=== PATIENT | male | born 1985 | race Caucasian/White ===

== ENCOUNTER 2023-08-19 09:07 | Emergency (ER) | payer MEDICAID, SELFPAY ==
[2023-08-19] VITALS (13 sets, daily range): BP systolic 115–126; BP diastolic 58–94; PULSE 68–88; RESP 16–18; TEMP 36–36.3; O2SAT 92–100; BMI 22.7
--- NOTE | 2023-08-19 09:21 | CT_ITS ---
STUDY: CT ABDOMEN AND PELVIS WITHOUT CONTRAST REASON FOR EXAM: Male, 38 years old. RLQ pain since this morning. RADIATION DOSAGE (If Supplied By Facility): CTDIvol = ( 6.31 ) mGy, DLP = ( 324.98 ) mGycm TECHNIQUE: Transaxial images were obtained from the dome of the diaphragm to the symphysis pubis without oral contrast, and without intravenous contrast. Sagittal and coronal images were reconstructed. Individualized dose optimization techniques were used for this CT. COMPARISON: None. FINDINGS: The visualized lung bases are unremarkable. The visualized portions of the heart are within normal limits. Normal liver. There is a solitary gallstone. This measures 2 cm x 2 cm. There are multiple benign calcified granulomata of the spleen. Normal pancreas. Normal bilateral adrenal glands. There is a 2.9 cm x 2.4 cm parapelvic cyst in the lower midportion of the right kidney. 2 mm nonobstructive calculus in the posterior calyx of the mid lower pole of the right kidney. 2 mm calculus in the posterior calyx of the midportion of the left kidney. No evidence of hydronephrosis. Normal visualized stomach. Normal small intestine. Moderate amount of fecal material is seen in the rectum. The appendix is visualized and appears normal. Normal abdominal aorta. Normal inferior vena cava. Normal retroperitoneum. Normal urinary bladder. There is a small umbilical hernia containing fat. Normal osseous structures. CT/Abdomen/Pelvis without Cont IMPRESSION: Solitary gallstone measuring 2 cm x 2 cm. Nonobstructive tiny bilateral intrarenal calculi. Right renal cyst. Electronically Signed: Dami Luna MD at 10:00 EDT ,
--- NOTE | 2023-08-19 09:22 | EX.ED.DYSGE1 ---
HPI History of Present Illness Chief Complaint: Abd Pain Informant: patient Onset/Context/Timing Onset: Today Narrative Narrative: Patient presents with right lower quadrant abdominal pain. He states he woke from sleep at 445 this morning with severe pain to the right lower quadrant. He felt well when he went to bed last evening. He did try to eat some cereal but did vomit following this. He denies personal history of kidney stones but does have family history. Patient reports history of hypoglycemia. He states he currently has some tingling in the fingers of his left hand which he states usually starts about 5 hours before he has problems with low blood sugar. [facility] Medical History (Updated 08/19/23 @ 11:[address] Priscilla Beyer MD) Hypoglycemia Medical History no medical history Home Medications hydrocodone-acetaminophen 5-325mg 5mg-325mg 1 tab PO Q6H PRN PRN Pain 3 days #10 TABLETS 08/19/23 [Rx Last Taken Unknown] ondansetron 4 mg disintegrating tablet 4 mg PO Q8H PRN PRN Nausea #10 tabs 08/19/23 [Rx Last Taken Unknown] Allergy/AdvReac Type Severity Reaction Status Date / Time No Known Allergies Allergy Verified 08/19/23 09:11 Social History Smoking Status: Never smoker ROS ROS ED Constitutional Constitutional ED: Denies chills or fever(s) Eyes Eyes: Denies discharge from eye(s) ENT ENT ED: Denies discharge from eye(s), rhinorrhea or sore throat Cardiovascular Cardiovascular: Denies chest pain Respiratory/Chest Respiratory/Chest: Denies cough or dyspnea Gastrointestinal Gastrointestinal: Reports abdominal pain, nausea and vomiting; Denies diarrhea Genitourinary Genitourinary ED: Denies dysuria Musculoskeletal Musculoskeletal: Denies back pain or extremity pain Integumentary Denies Abrasions or rash Neurologic Neurologic: Denies headache(s) or weakness Psychiatric Psychiatric: Reports anxiety Allergic/Immunologic Allergic/Immunologic ED: Denies lip swelling or urticaria EXAM Physical Exam Const Vital Signs: 08/19/23 09:09 08/19/23 10:37 08/19/23 10:39 Temperature 96.8 F L Temperature Source Temporal Pulse Rate 68 Respiratory Rate 16 Blood Pressure 126/94 H 115/68 Blood Pressure Mean 104 80 Pulse Ox 100 100 Oxygen Delivery Method Room Air 08/19/23 10:40 08/19/23 10:45 08/19/23 10:50 Temperature Temperature Source Pulse Rate 88 Respiratory Rate 18 Blood Pressure 116/58 L 115/67 Blood Pressure Mean 74 83 Pulse Ox 100 100 Oxygen Delivery Method Positive well nourished and well developed General Appearance ED: well developed HEENT Reports moist mucous membranes Eyes EOMs intact bilaterally Chest Wall inspection of chest normal and palpation of chest normal Resp normal respiratory effort and clear to auscultation bilaterally Cardio regular rate and regular rhythm GI GI Narrative: Abdomen soft moderate tenderness in the right lower quadrant. No palpable masses. Extremity normal to inspection Neuro oriented x3 and no sensory deficits noted Psych Mood & Affect: anxious Skin no rashes or lesions noted MDM MDM MDM Narrative Medical decision making narrative: IV line established. Patient given morphine, Toradol, Zofran, and IV fluids. Labwork obtained to evaluate for leukocytosis, anemia, and electrolyte derangement. Urinalysis obtained to evaluate for infection/hematuria. CT flank obtained to evaluate for potential renal stone, appendicitis, colitis. History & Record Review Discussion w/independent historian: Patient and Family Lab Data Attestation: I reviewed the patient's lab results. Labs: Laboratory Results - last 24 hr 08/19/23 08/19/23 09:25 10:40 WBC 13.2 H RBC 4.89 Hgb 15.5 Hct 44.3 MCV 90.6 MCH 31.7 MCHC 35.0 RDW Std Deviation 38.7 RDW Coeff of Jef 11.7 Plt Count 240 MPV 10.6 Immature Gran % (Auto) 0.400 Neut % (Auto) 81.7 H Lymph % (Auto) 14.6 L [place] % (Auto) 2.7 Eos % (Auto) 0.2 Baso % (Auto) 0.4 Absolute Neuts (auto) 10.8 H Absolute Lymphs (auto) 1.93 Nucleated RBC % 0 Sodium 141 Potassium 3.8 Chloride 110 H Carbon Dioxide 24.0 Anion Gap 7 BUN 18 Creatinine 1.36 H Estim Creat Clear Calc 68.56 Est GFR (MDRD) Af Amer 75 Est GFR (MDRD) Non-Af 62 BUN/Creatinine Ratio 13.2 Glucose 123 H Calcium 9.4 Urine Color Yellow Urine Clarity Clear Urine pH 7.0 Ur Specific [place] 1.010 Urine Protein 15 H Urine Glucose (UA) Normal Urine Ketones 150 A* Urine Occult Blood Negative Urine Nitrite Negative Urine Bilirubin 1 H Urine Urobilinogen Normal Ur Leukocyte Esterase 25 H Urine RBC 0 SEEN Urine WBC 0-5 SEEN Ur Squamous Epith Cells 0 SEEN Urine Bacteria 1+ Urine Mucus 2+ Radiography Diagnostic Testing: Clinical Impression(s) from Imaging Studies Abdomen/Pelvis CT 08/19/23 09:21 IMPRESSION: Solitary gallstone measuring 2 cm x 2 cm. Nonobstructive tiny bilateral intrarenal calculi. Right renal cyst. Electronically Signed: Dami Luna MD at 10:00 EDT , Treatment and Re-Evaluation :: On repeat evaluation patient resting more comfortably. CBC was a white count of 13.2 with 81% neutrophils. Hemoglobin is 15.5. Chemistry studies reveal a creatinine of 1.36. Do not have any prior studies available for comparison. Glucose is 123. Urinalysis does reveal ketones with 0-5 white cells and 1+ bacteria. CT scan of flank reveals a solitary gallstone measuring 2 cm. No evidence of wall thickening or pericholecystic fluid. Nonobstructive tiny bilateral intrarenal calculi are noted. A right renal cyst is appreciated. Test results are discussed with patient and family at bedside. There is no evidence of ureterolithiasis at this time. Patient's pain is improved. We discussed that he may have passed a small stone, but at this time appendix and gallbladder both appear unremarkable. He will be given a short course of analgesics and referred to Dr. Wise for follow-up as needed. Return instructions given. Discharge Plan Triage Chief Complaint: Abd Pain ED Provider: Priscilla Beyer Dx/Rx/DC Orders Clinical Impression: Right flank pain, Bilateral renal stones, Cyst of right kidney Instructions: ED Flank Pain, Uncertain Cause Prescriptions: New ondansetron 4 mg tablet,disintegrating 4 mg PO Q8H PRN PRN (Reason: Nausea) Qty: 10 0RF hydrocodone-acetaminophen 5-325 mg tablet 1 tab PO Q6H PRN PRN (Reason: Pain) 3 Days Qty: 10 0RF Primary Care Provider: Care Physician,No Primary Referrals: Marcus Wise MD [Med Staff - Active Staff] - 1 Week if not improving Care Physician,No Primary [Primary Care Provider] - Activity Restrictions/Additional Instructions: You can also take Ibuprofen to help with pain. It will not interfere with the medications you were prescribed. Disposition Disposition: Home, Self Care
[2023-08-19] MEDS: Ondansetron 4 MG/2 ML Vial IV (09:27)
[2023-08-19] MEDS: Ketorolac 30 MG/ML Syringe IV (09:27)
[2023-08-19] MEDS: 0.9% Normal Saline (1000mL) 1,000 ML 150 ML IV (09:28)
[2023-08-19] MEDS: Morphine 4 MG/ML Syringe IV (09:28)
[2023-08-19 09:34] LABS: Absolute Lymphocyte Count 1.93 X10^3/uL (0.83-4.51); Absolute Neutrophil Count 10.8 X10^3/uL (2.0-7.7); Basophil# 0.05 X10^3/uL; Basophil% 0.4 % (0-1); Eosinophil# 0.03 X10^3/uL; Eosinophils% 0.2 % (0-5); Hematocrit 44.3 % (40-54); Hemoglobin 15.5 g/dL (13.0-16.5); Lymphocyte # 1.93 X10^3/ul (0.83-4.51); Lymphocyte % 14.6 % (19-41); Mean Corpuscular Hgb 31.7 pg (27.0-32.0); Mean Corpuscular Volume 90.6 fL (80-94); Mean Platelet Vol. 10.6 fl (6.2-12.0); Monocyte# 0.36 X10^3/uL; Monocyte% 2.7 % (0-10); NRBC Flagged by Analyzer 0 % (0-5); Neutrophil # 10.77 X10^3/uL (2.7-7.7); Neutrophil % 81.7 % (47-70); Platelet Count 240 K/mm3 (150-450); RBC Distribution Width CV 11.7 % (11.6-14.6); RBC Distribution Width SD 38.7 fl (35.1-43.9); Red Blood Count 4.89 M/mm3 (4.6-6.2); White Blood Count 13.2 K/mm3 (4.4-11.0)
[2023-08-19 09:49] LABS: Anion Gap 7 (5-15); BUN 18 mg/dL (7-18); BUN/Creat Ratio 13.2 RATIO (10-20); Calcium,Total 9.4 mg/dL (8.5-10.1); Chloride 110 mmol/L (98-107); Creatinine, Serum 1.36 mg/dL (0.70-1.30); EST Glomerular Filtration Rate 62 mL/min (>60); Est Glom Filt Rate - Afr Amer 75 mL/min (>60); Estimated Creatinine Clearance 68.56 ml/min; Glucose 123 mg/dL (74-106); Potassium 3.8 mmol/L (3.5-5.1); Sodium Level 141 mmol/L (136-145)
[2023-08-19 10:44] LABS: Squamous Epithelial Cells - UA 0 SEEN /hpf (0-5)
[2023-08-19 10:49] LABS: Color, Urine Yellow (Yellow); Glucose, Dipstick Normal (Normal); Leukocyte Esterase-Dipstick 25 /ul (Negative); Nitrite-Dipstick Negative (Negative); Occult Blood-Urine Negative /ul (Negative); Protein-Dipstick 15 mg/dl (Negative); Urine Clarity Clear (Clear); Urine Urobilinogen Normal (Normal)
[2023-08-19 10:58] LABS: Urine Bilirubin Dipstick 1 mg/dL (Negative)
[2023-08-19 11:00] LABS: Ketone-Dipstick 150 mg/dl (Negative)
[2023-08-19 11:02] LABS: Bacteria 1+ /hpf (None Seen); Mucous, Urine 2+ /hpf (<or=2+); Red Blood Cells-Urine 0 SEEN /hpf (0-5); White Blood Cells 0-5 SEEN /hpf (0-5)
== END 2023-08-19 11:51 | disposition home or self-care (01) ==
PROVIDERS: Emergency Provider Emergency Medicine; Visit Provider Emergency Medicine
DX: R10.31 Right lower quadrant pain (principal); N28.1 Cyst of kidney, acquired
CPT/HCPCS: 74176; 80048; 81001; 85025; 96374; 96375; 99283; J7030; A4216; J2405

== ENCOUNTER 2024-07-18 08:00 | Emergency (ER) | payer BC, SELFPAY ==
[2024-07-18 08:00] VITALS: BP 157/120; PULSE 55; RESP 14; TEMP 36.6; O2SAT 100; BMI 24.5
[2024-07-18] MEDS: Morphine 4 MG/ML Syringe IV (08:21)
[2024-07-18] MEDS: Ketorolac 30 MG/ML Syringe IV (08:21)
[2024-07-18] MEDS: Ondansetron 4 MG/2 ML Vial IV (08:21)
[2024-07-18] MEDS: 0.9% Normal Saline (1000mL) 1,000 ML 1000 ML IV (08:21)
[2024-07-18 08:31] LABS: Bedside Glucose 127 mg/dL (74-106)
[2024-07-18 08:34] LABS: Absolute Lymphocyte Count 1.54 X10^3/uL (0.83-4.51); Absolute Neutrophil Count 6.8 X10^3/uL (2.0-7.7); Basophil# 0.05 X10^3/uL; Basophil% 0.6 % (0-1); Eosinophil# 0.06 X10^3/uL; Eosinophils% 0.7 % (0-5); Hemoglobin 15.4 g/dL (13.0-16.5); Lymphocyte # 1.54 X10^3/ul (0.83-4.51); Lymphocyte % 17.4 % (19-41); Mean Corp Hgb Conc 35.8 g/dL (32-36); Mean Corpuscular Hgb 32.4 pg (27.0-32.0); Mean Corpuscular Volume 90.5 fL (80-94); Mean Platelet Vol. 10.6 fl (6.2-12.0); Monocyte# 0.34 X10^3/uL; Monocyte% 3.8 % (0-10); NRBC Flagged by Analyzer 0 % (0-5); Neutrophil # 6.83 X10^3/uL (2.7-7.7); Neutrophil % 77.3 % (47-70); Platelet Count 231 K/mm3 (150-450); RBC Distribution Width CV 11.9 % (11.6-14.6); RBC Distribution Width SD 39.3 fl (35.1-43.9); Red Blood Count 4.75 M/mm3 (4.6-6.2); White Blood Count 8.8 K/mm3 (4.4-11.0)
--- NOTE | 2024-07-18 08:41 | EX.ED.DYSGE1 ---
HPI History of Present Illness Chief Complaint: Flank Pain Informant: patient and parent Narrative Narrative: 39-year-old male presenting to the emergency room with a chief complaint of of abdominal pain. Patient states that at 0300 hrs. began experiencing back pain nausea vomiting right posterior shoulder pain and upper abdominal pain. Patient had prior kidney stone. He notes that he has had a couple bowel movements this morning and relieving some gas seem to help but symptoms persist. On prior CT imaging the patient was noted to have a large gallstone. He notes that he last ate around 1800 hrs. last night the pain began around 9 hours later. No reported fevers. [facility] Medical History Hypoglycemia Medical History no medical history Home Medications ?Medication ?Instructions ?Recorded ?Last Taken ?Type omeprazole 20 mg capsule,delayed 20 mg PO BID #28 CAPSULES 07/18/24 Unknown Rx release ondansetron 4 mg disintegrating 4 mg PO Q6H PRN PRN Nausea #15 tabs 07/18/24 Unknown Rx tablet oxycodone-acetaminophen 5 mg-325 1 tab PO Q6H PRN PRN Pain 3 days 07/18/24 Unknown Rx mg tablet #12 TABLETS Allergy/AdvReac Type Severity Reaction Status Date / Time No Known Allergies Allergy Verified 07/18/24 08:01 Surgical History no surgical history Social History Smoking Status: Never smoker ROS ROS ED Constitutional Constitutional ED: Denies chills, fever(s) or weight loss Eyes Eyes: Denies change in vision or diplopia ENT ENT ED: Denies ear pain, rhinorrhea or sore throat Cardiovascular Cardiovascular: Denies chest pain, orthopnea, palpitations or racing heartbeat Respiratory/Chest Respiratory/Chest: Denies cough, dyspnea or orthopnea Gastrointestinal Gastrointestinal: Reports abdominal pain, nausea and vomiting; Denies diarrhea Genitourinary Genitourinary ED: Denies dysuria, hematuria or urinary frequency Musculoskeletal Musculoskeletal: Reports back pain; Denies arthralgias or myalgias Integumentary Denies abscess or rash Neurologic Neurologic: Denies headache(s) or weakness Psychiatric Psychiatric: Denies anxiety, depression, suicidal ideation or suicidal thoughts Endocrine Endocrinology: Denies polydipsia, polyphagia or polyuria Allergic/Immunologic Allergic/Immunologic ED: Denies mouth swelling, tongue swelling or urticaria EXAM Physical Exam Const Vital Signs: 07/18/24 08:00 07/18/24 10:00 07/18/24 12:00 Temperature 98 F Temperature Source Temporal Pulse Rate 55 L 81 79 Respiratory Rate 14 16 16 Blood Pressure 157/120 H 107/67 110/68 Blood Pressure Mean 132 80 82 Pulse Ox 100 99 99 Oxygen Delivery Method Room Air Room Air Room Air 07/18/24 14:00 Temperature Temperature Source Pulse Rate 76 Respiratory Rate 16 Blood Pressure 115/78 Blood Pressure Mean 90 Pulse Ox 99 Oxygen Delivery Method Positive well nourished and well developed General Appearance ED: well developed and NAD HEENT Reports normocephalic, head/scalp atraumatic and moist mucous membranes Eyes PERRL and EOMs intact bilaterally Neck no lymphadenopathy, supple and no JVD Resp normal respiratory effort and clear to auscultation bilaterally Cardio regular rate, regular rhythm and no murmurs GI Inspection: Negative for abdominal distention Auscultation: normoactive bowel sounds Palpation: soft, tender RUQ and guarding; Negative for rebound tenderness present Back/Spine no CVA tenderness and normal ROM Extremity normal to inspection General Extremety ED: Negative for edema General Extremity: Negative for edema Neuro oriented x3 and CN's II-XII intact bilaterally Sensorium / Orientation: alert Motor Exam: strength 5/5 throughout Psych mental status grossly normal Mood & Affect: Negative for depressed or tearful Skin no rashes or lesions noted and no wounds MDM MDM MDM Narrative Medical decision making narrative: Differential diagnosis includes but not limited to biliary colic pancreatitis choledocholithiasis kidney stone UTI Patient was concerned with hypoglycemia and is Accu-Chek was 127. Patient's white count is 8.8 with a hemoglobin of 15.4 platelet count of 231. BMP shows a glucose of 131. Direct bilirubin is 0.43 with a total bilirubin of 2.4 transaminases and alkaline phosphatase normal lipase 24. Urinalysis with no overt infection. CT of the abdomen pelvis was obtained. This was read by radiology reviewed by myself. There is evidence of nonobstructing kidney stones but no obvious hydronephrosis or kidney stone in the ureter. There is evidence of cholelithiasis with some a rate of mild pericholecystic fluid. Formal gallbladder ultrasound was obtained. This demonstrated cholelithiasis small amount of pericholecystic fluid no gallbladder wall thickening. Please see radiologist read for full details. Discussed the case with on-call surgeon Dr. Ivey. She reviewed imaging and blood work. Recommendation is to give the patient a dose of Pepcid. We did an given p.o. challenge and he has kept the water down. We reviewed the above findings. Using shared decision making the patient will be discharged home with instructions to follow-up with general surgery. I will write for omeprazole against her on and some pain medication should he need it. If he worsens he should return to emergency. Otherwise we will have him follow-up with surgery History & Record Review Discussion w/independent historian: Patient and Family Lab Data Attestation: I reviewed the patient's lab results. Labs: Laboratory Results - last 24 hr 07/18/24 07/18/24 07/18/24 08:12 08:25 11:20 WBC 8.8 RBC 4.75 Hgb 15.4 Hct 43.0 MCV 90.5 MCH 32.4 H MCHC 35.8 RDW Std Deviation 39.3 RDW Coeff of Jef 11.9 Plt Count 231 MPV 10.6 Immature Gran % (Auto) 0.200 Neut % (Auto) 77.3 H Lymph % (Auto) 17.4 L [place] % (Auto) 3.8 Eos % (Auto) 0.7 Baso % (Auto) 0.6 Absolute Neuts (auto) 6.8 Absolute Lymphs (auto) 1.54 Nucleated RBC % 0 Sodium 141 Potassium 3.5 Chloride 107 Carbon Dioxide 24.0 Anion Gap 10 BUN 16 Creatinine 1.27 Estim Creat Clear Calc 73.01 Est GFR (MDRD) Af Amer 81 Est GFR (MDRD) Non-Af 67 BUN/Creatinine Ratio 12.6 Glucose 131 H Calcium 9.3 Total Bilirubin 2.40 H Direct Bilirubin 0.43 H AST 16 ALT 26 Alkaline Phosphatase 91 Total Protein 7.3 Albumin 4.3 Globulin 3.0 Lipase 24 L Urine Color Yellow Urine Clarity Clear Urine pH 7.0 Ur Specific [place] 1.005 Urine Protein 30 H Urine Glucose (UA) Normal Urine Ketones 5 H Urine Occult Blood 10 H Urine Nitrite Negative Urine Bilirubin Negative Urine Urobilinogen 4 H Ur Leukocyte Esterase 25 H Urine RBC 0 SEEN Urine WBC 0 SEEN Ur Squamous Epith Cells 0 SEEN Urine Bacteria 0 SEEN Urine Mucus 0 SEEN POC Glucose 127 H Radiography Diagnostic Testing: Clinical Impression(s) from Imaging Studies Abdomen/Pelvis CT 07/18/24 09:54 IMPRESSION: 1. Unchanged cholelithiasis with mild pericholecystic fluid and intrahepatic biliary ductal dilation. Findings are equivocal and may represent acute cholecystitis in the correct clinical setting. Correlation with Penny's sign, laboratory values and clinical history recommended. 2. Punctate nonobstructing right lower pole renal calculus. One or more dose reduction techniques were used (e.g., Automated exposure control, adjustment of the mA and/or kV according to patient size, use of iterative reconstruction technique). Reading Location: [facility] Gallbladder Ultrasound 07/18/24 10:44 IMPRESSION: Ultrasound findings compatible with acute cholecystitis. Clinical and laboratory correlation recommended. Reading Location: [facility] Management Discussion w/another healthcare provider: Support Group Manager (Dr Ivey (Surgery)) Discharge Plan Triage Chief Complaint: Flank Pain ED Provider: Nav Rivera Dx/Rx/DC Orders Clinical Impression: Abdominal pain, Vomiting, Cholelithiasis Instructions: What Are Gallstones, Treating Gallstones Prescriptions: New oxycodone-acetaminophen 5-325 mg tablet 1 tab PO Q6H PRN PRN (Reason: Pain) 3 Days Qty: 12 0RF omeprazole 20 mg capsule,delayed release(DR/EC) 20 mg PO BID Qty: 28 0RF ondansetron 4 mg tablet,disintegrating 4 mg PO Q6H PRN PRN (Reason: Nausea) Qty: 15 0RF Primary Care Provider: Care Physician,No Primary Referrals: Lary Ivey MD [Med Staff - Active Staff] - As soon as possible Care Physician,No Primary [Primary Care Provider] - Print Language: Citizen Of [place] Disposition Disposition: Home, Self Care
[2024-07-18 09:02] LABS: AST(SGOT) 16 U/L (15-37); Alanine Aminotransfer ALT/SGPT 26 U/L (16-61); Albumin, Serum 4.3 g/dL (3.2-5.0); Alkaline Phosphatase 91 U/L (45-117); Anion Gap 10 (5-15); BUN 16 mg/dL (7-18); BUN/Creat Ratio 12.6 RATIO (10-20); Bilirubin, Direct 0.43 mg/dL (0.00-0.30); Calcium,Total 9.3 mg/dL (8.5-10.1); Chloride 107 mmol/L (98-107); Creatinine, Serum 1.27 mg/dL (0.70-1.30); EST Glomerular Filtration Rate 67 mL/min (>60); Est Glom Filt Rate - Afr Amer 81 mL/min (>60); Estimated Creatinine Clearance 73.01 ml/min; Glucose 131 mg/dL (74-106); Lipase 24 U/L (73-393); Potassium 3.5 mmol/L (3.5-5.1); Protein, Total 7.3 g/dL (6.4-8.2); Sodium Level 141 mmol/L (136-145)
--- NOTE | 2024-07-18 09:54 | CT_ITS ---
PROCEDURE: ABDOMEN/PELVIS W IV CONT ONLY REASON FOR EXAM: 39-year-old male, right-sided flank pain, nausea and vomiting, history of kidney stones. TECHNIQUE: Abdomen and pelvis CT with intravenous contrast. No oral contrast. IV CONTRAST: Administered. COMPARISON: CT abdomen pelvis 08/19/2023. FINDINGS: Lung bases: The heart is normal in size. Bibasilar atelectasis. Liver: The liver is normal in size without focal hepatic mass. The major portal veins are patent. Mild biliary ductal dilation. Gallbladder: Stable dependent cholelithiasis. Mild pericholecystic fluid. No gallbladder wall thickening. Spleen: Unremarkable. Pancreas: Unremarkable. No pancreatic ductal dilation. Adrenals: Unremarkable. Kidneys: Bilateral renal cysts. Punctate nonobstructing right lower pole renal calculus. No hydronephrosis. Bladder: Mildly distended and unremarkable. Reproductive Organs: Unremarkable. Bowel: The bowel loops are normal in caliber. No ascites or pneumoperitoneum. No inflammatory mass in the expected region of the appendix. Lymph nodes: No suspicious lymph node enlargement. Vasculature: Major vascular structures are unremarkable. Bones: Unremarkable. CT/Abdomen/Pelvis W IV Cont ONLY IMPRESSION: 1. Unchanged cholelithiasis with mild pericholecystic fluid and intrahepatic bi liary ductal dilation. Findings are equivocal and may represent acute cholecystitis in the correct clinical setting. Correlation with Penny's sign, laboratory values and clinical history recommended. 2. Punctate nonobstructing right lower pole renal calculus. One or more dose reduction techniques were used (e.g., Automated exposure contr ol, adjustment of the mA and/or kV according to patient size, use of iterative reconstruction technique). Reading Location: [id number]
[2024-07-18 10:00] VITALS: BP 107/67; PULSE 81; RESP 16; O2SAT 99
--- NOTE | 2024-07-18 10:44 | US_ITS ---
PROCEDURE: GALLBLADDER REASON FOR EXAM: 39-year-old male, abdominal pain, evaluate for gallbladder stone. COMPARISON: Same day CT abdomen pelvis. FINDINGS: Liver: Grossly normal size and echotexture. Gallbladder: There are echogenic gallstones and minimal pericholecystic fluid. The gallbladder is mildly distended. No gallbladder wall thickening. A sonographic Penny sign is present. Common bile duct: Normal measuring 0.4 cm Pancreas: Visualized portions are sonographically unremarkable. Visualized portions of the right kidney are unremarkable. Small right renal cyst. No right upper quadrant ascites. US/Gallbladder IMPRESSION: Ultrasound findings compatible with acute cholecystitis. Clinical and laborato ry correlation recommended. Reading Location: [id number]
[2024-07-18 11:28] LABS: Bacteria 0 SEEN /hpf (None Seen); Mucous, Urine 0 SEEN /hpf (<or=2+); Squamous Epithelial Cells - UA 0 SEEN /hpf (0-5); White Blood Cells 0 SEEN /hpf (0-5)
[2024-07-18 11:31] LABS: Color, Urine Yellow (Yellow); Glucose, Dipstick Normal (Normal); Ketone-Dipstick 5 mg/dl (Negative); Leukocyte Esterase-Dipstick 25 /ul (Negative); Nitrite-Dipstick Negative (Negative); Occult Blood-Urine 10 /ul (Negative); Protein-Dipstick 30 mg/dl (Negative); Specific Gravity, Urine 1.005 (1.002-1.030); Urine Bilirubin Dipstick Negative (Negative); Urine Clarity Clear (Clear); Urine Urobilinogen 4 mg/dl (Normal)
[2024-07-18 11:36] LABS: Red Blood Cells-Urine 0 SEEN /hpf (0-5)
[2024-07-18 12:00] VITALS: BP 110/68; PULSE 79; RESP 16; O2SAT 99
[2024-07-18] MEDS: Famotidine 20 MG Tablet 40 MG PO (13:24)
[2024-07-18 14:00] VITALS: BP 115/78; PULSE 76; RESP 16; O2SAT 99
== END 2024-07-18 15:12 | disposition home or self-care (01) ==
PROVIDERS: Emergency Provider Emergency Medicine; Visit Provider Emergency Medicine
DX: K80.20 Calculus of gallbladder without cholecystitis without obstruction (principal); Z87.442 Personal history of urinary calculi; R11.2 Nausea with vomiting, unspecified
CPT/HCPCS: 74177; 76705; 80048; 80076; 81001; 82962; 83690; 85025; 96361; 96374; 96375; 99284; A4216; J2405

== ENCOUNTER 2024-07-29 06:16 | Day surgery (SDC) | payer BC, SELFPAY ==
--- NOTE | 2024-07-29 | GASB_PTH ---
PATIENT: ROMANA RICARDO LOC: EN U#:[id number] AGE/SX: 39/M ROOM: RE07/29/[address]: Dr. Lary Ivey MD : 1985 BED: DIS: 07/29/2024 SPEC #: [id number] RECD: 07/29/24 12:23 STATUS: BIANKA VALENTIN #: [id number] JIL: 07/29/24 00:[address]: Lary Ivey DEPT: SURGICAL PATHOLOGY RECD BY: Jak Villa ENTERED: 07/29/24 12:23 SP TYPE: Gastric Bx OTHR DR: No Primary Care Phys Tissues: Gastric mucous membrane Procedures: Surgery Specimen Level IV HEADER OPERATION: EGD and biopsy PRE-OP DIAGNOSIS: Cholelithiasis and GERD TISSUE SUBMITTED: Antral biopsy MICROSCOPIC DIAGNOSIS Antral biopsy: Mild gastritis. See microscopic description and comment. 07/30/2024 COMMENT The results of immunohistochemistry for Helicobacter pylori will be reported separately ([id number]). MICROSCOPIC DESCRIPTION Slides are reviewed. The specimen shows fragments of gastric mucosa with chronic inflammatory cell infiltrates in the lamina propria consisting of lymphocytes and plasma cells, consistent with mild chronic gastritis. GROSS DESCRIPTION Received in fixative is one container labeled with the patient's name and designated Antral biopsy. The specimen consists of two irregular fragments of light fonseca soft tissue that in aggregate measure 0.5 x 0.3 x 0.2 cm. The specimen is totally submitted in one cassette. 07/29/2024 TC:2 CPT:06345
[2024-07-29 06:34] VITALS: BP 120/69; PULSE 73; RESP 16; TEMP 36.4; O2SAT 100; BMI 23.4
--- NOTE | 2024-07-29 07:20 | PCM.HP.BLA ---
History and Physical Date of Admission: 07/29/24 Date of Service: 07/23/24 MR#: [id number] Acct: [id number] Name: ROMANA RICARDO Rep #: [id number] : 1985 Provider: Dr. 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 Is patient in pain?: Yes (sore throat) Allergies No Known Allergies Allergy (Verified 07/23/24 08:54) Medications ?Medication ?Instructions ?Recorded ?Confirmed ?Type omeprazole 20 mg capsule,delayed 20 mg PO BID #28 CAPSULES 07/18/24 07/23/24 Rx release ondansetron 4 mg disintegrating 4 mg PO Q6H PRN PRN Nausea #15 tabs 07/18/24 07/23/24 Rx tablet oxycodone-acetaminophen 5 mg-325 1 tab PO Q6H PRN PRN Pain 3 days 07/18/24 07/23/24 Rx mg tablet #12 TABLETS Have you fallen in the past year?: No PFSH Medical History Hypoglycemia Social History Smoking Status: Never smoker alcohol intake: never HPI HPI HPI: 39-year-old male presents status post follow-up from the ER for epigastric/right upper quadrant pain, cholelithiasis. Patient states that he ate at noon and 5 PM and the pain woke him up at 3 AM. Patient states his epigastric/right upper quadrant wrapped around. Patient denies history of previous similar pain. Patient was previously able to eat fatty greasy foods without any issues prior to this. Patient has been following a low-fat diet currently. Patient is also currently on omeprazole as his labs were normal in the ER and pain did improve after getting IV Protonix. Patient CT abdomen pelvis done a year prior as well as at the ER looks similar called stable mild pericholecystic fluid, cholelithiasis was at the fundus of the gallbladder. Ultrasound also done showed a normal wall normal CBD called mild pericholecystic fluid as well as gallstones. ROS General General: No weight change, appetite, fatigue, colon cancer or breast cancer HEENT HEENT: No difficulty swallowing, eye injury, eye surgery, swollen glands or hoarseness Endo Endocrine: No thyroid disease, diabetes mellitus, thyroid cancer, Hair loss, heat intolerance or cold intolerance Skin Skin: No rash or changing moles Musc Musculoskeletal: No back problems, arthritis, rheumatoid arthritis, gout or joint pain Cardio Cardiovascular: No murmur, pacemaker, heart disease, atrial fibrillation, high blood pressure, heart attack, heart stent, palpitations, shortness of breat with exertion or chest pain Psych Psychiatric: Yes depression and anxiety; No hearing voices Resp Respiratory: No shortness of breath, No sleep apnea, No cough, No COPD, No asthma, No emphysema and No wheezing Gastro Gastrointestinal: No abdominal pain, No nausea or vomiting, No diarrhea, No constipation, No blood in stool, No acid reflux, No hemorrhoids, No ulcers, No gallbladder problem and No black,tarry stools Ki Hematologic: No blood thinners, No blood disorders, No bleeding, No anemia and No blood clots Neuro Neurologic: No numbness and No tingling Exam Const General: cooperative, healthy appearing, comfortable and no acute distress [facility] Head: normocephalic and atraumatic Neck Neck: supple Resp Effort & Inspection: normal respiratory effort Cardio Rate: regular rate GI Inspection: non-distended Palpation: soft and tender (Mild right upper quadrant and epigastric and minimal RLQ, no PS) Skin General: no rashes or lesions noted Neuro General: CN's II-XI intact bilaterally Extrem General: normal to inspection Psych Mental Status: mental status grossly normal Attitude: cooperative Assessment and Plan Assessment and Plan (1) Abdominal pain: Status: Acute (2) Cholelithiasis: Status: Acute Orders: Orders EGD 07/29/24 Plan Patient denies any pain since the ER patient did have some pain on exam did state that he did not take his omeprazole yet this morning. Patient previous more consistent with gastric etiology than cholelithiasis as gallbladder was similar to last year on CT in gallstones are in the fundus. Discussed with patient would continue the omeprazole plan for an EGD?if the EGD does not show anything obvious would schedule for laparoscopic cholecystectomy at that time. Patient is agreeable with plan. I have discussed the above with the patient. I have offered the patient esophagogastroduodenoscopy for evaluation. I have explained the risks/benefits of the procedure and described the procedure. I have discussed the risks with the patient, including but not limited to: infection, bleeding, perforation of the GI tract requiring emergency surgery, inability to complete the procedure, injury to any internal organs, complications of anesthesia, etc. - the patient understands and agrees to proceed. I have answered all the patient's questions to the patient's satisfaction and the patient has no further questions. Lary Ivey M.D. Pager: [phone] [facility] [address] [place] [address] [address] [place] [address] Office: [phone] Coding Level of Care Code Off vis,new,level 3 Diagnoses Abdominal pain R10.9 Cholelithiasis K80.20 Clinical Quality Measures Falls Risk Screening/Assistive Devices Have you fallen in the past year?: No 07/24/24 0931 <Electronically signed by Lary Ivey MD> Date Lary Ivey MD
[2024-07-29 07:21] VITALS: BP 120/69; PULSE 73; RESP 16; TEMP 36.4; O2SAT 100
--- NOTE | 2024-07-29 07:21 | PCM.PRE.AN2 ---
ASA Classification* ASA Classification ASA Classification: 2 Assessment & Plan Anesthesia* Anesthesia Assessment Anesthesia Assessment: Discussed sedation and/or anesthesia options, risks, benefits, and alternatives with patient/parents/legal guardian/POA. Questions invited. The patient/parents/legal guardian/POA seems to understand and agrees to proceed with anesthesia plan. Reviewed the physical assessment, medical history, allergy history and patient home medications list prior to surgery/procedure/anesthetic and documented any changes. Performed airway and anesthesia risk assessments. Anesthesia Type Anesthesia Type: MAC History Source History Obtained from:: Patient and Chart Anesthesia Focused Assessment* Temperature: 97.5 F Pulse Rate: 73 Blood Pressure: 120/69 Respiratory Rate: 16 Pulse Ox: 100 Airway Assessment Mouth opens: >3 cm Mallampati Score: II Teeth Condition: Intact Neck Range of motion (ROM): Full ROM Focused Labs Anesthesia Preop lab: CBC WBC 8.8 K/mm3 (4.4-11.0) 07/18/24 08:07/18/24 RBC 4.75 M/mm3 (4.6-6.2) 07/18/24 08:07/18/24 Hgb 15.4 g/dL (13.0-16.5) 07/18/24 08:07/18/24 Hct 43.0 % (40-54) 07/18/24 08:07/18/24 Plt Count 231 K/mm3 (150-450) 07/18/24 08:25 07/18/24 CHEMISTRY Potassium 3.5 mmol/L (3.5-5.1) 07/18/24 08:25 07/18/24 Sodium 141 mmol/L (136-145) 07/18/24 08:25 07/18/24 BUN 16 mg/dL (7-18) 07/18/24 08:25 07/18/24 Creatinine 1.27 mg/dL (0.70-1.30) 07/18/24 08:07/18/24 Glucose 131 mg/dL (74-106) H 07/18/24 08:25 07/18/24 POC Glucose 127 mg/dL (74-106) H 07/18/24 08:12 07/18/24 COAG Pre-Assessment Diagnosis/Proposed Procedure Planned Operative Procedure(s): EGD Anesthesia History 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 When Was Last Pacemaker Check QUESTION #4 FULL TEXT: You/Your Family Experience fever (hyperthermia) with Anesthesia Last Oral Intake Last Oral intake: Last Oral Intake NPO since 23:00 07/29/24 06:34 Meds taken in AM with sips of No 07/29/24 06:34 water? 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 fastener chain assembler Female No 07/27/24 13:25 HX of Motion Sickness Yes 07/27/24 13:25 HX of N/V After Surgery No 07/27/24 13:25 Non-Smoker Yes 07/27/24 13:25 Duration of Surgery greater No 07/27/24 13:25 than 60 minutes Number of Risk Factors 2 07/27/24 13:25 PONV Score Moderate Risk 07/27/24 13:25 Height & Weight Height & Weight: Anesthesia: Height & Weight Height 5 ft 7 in 07/29/24 06:34 Weight: 68 kg 07/29/24 06:34 Body Mass Index (BMI) 23.4 07/29/24 06:34 Respiratory Assessment Respiratory Assessment - slide fastener chain assembler: Respiratory Tract Infection Hx - slide fastener chain assembler Hx Respiratory Tract Infection No 07/27/24 13:25 STOP Sleep Apnea STOP Sleep Apnea - slide fastener chain assembler: STOP Sleep Apnea - slide fastener chain assembler Hx Hypertension No 07/27/24 13:25 Hx Sleep Apnea No 07/27/24 13:25 CPAP BIPAP Do you snore loudly (louder No 07/27/24 13:25 than talking or can be heard Do you often feel tired/ No 07/27/24 13:25 fatigued/ sleepy during daytime? Has anyone observed you stop No 07/27/24 13:25 breathing during sleep? STOP Results Negative 07/27/24 13:25 QUESTION #5 FULL TEXT : Do you snore loudly (louder than talking or can be heard through closed doors)? 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 Specify any problems Hx of Preganancy in last 3 N/A 07/27/24 13:25 Months Nurse Filling Out Transfusion [email or web address] 07/27/24 13:25 & Questions: Date: 07/27/24 07/27/24 13:25 Time: 13:27 07/27/24 13:25 Patient unable to answer at this time (ie. confused, unrespo /Reproduction History /Reproductive History - slide fastener chain assembler: /Reproductive Hx- slide fastener chain assembler Hx Now Gestational Age (in weeks): EDC: Hx Hx Para Hx Section SAB No 08/19/23 09:09 PFSH Medical History Depression Anxiety Gastric reflux Hypoglycemia Home Medications ?Medication ?Instructions ?Recorded ?Last Taken ?Type omeprazole 20 mg capsule,delayed 20 mg PO BID #28 CAPSULES 07/18/24 Unknown Rx release ondansetron 4 mg disintegrating 4 mg PO Q6H PRN PRN Nausea #15 tabs 07/18/24 Unknown Rx tablet oxycodone-acetaminophen 5 mg-325 1 tab PO Q6H PRN PRN Pain 3 days 07/18/24 Unknown Rx mg tablet #12 TABLETS Allergy/AdvReac Type Severity Reaction Status Date / Time No Known Allergies Allergy Verified 07/29/24 06:33 Social History Smoking Status: Never smoker alcohol intake: never Review of Systems (Anesthesia) ROS Narrative System reviewed and no additional complaints, except as documented.
--- NOTE | 2024-07-29 07:30 | IMM_PTH ---
PATIENT: ROMANA RICARDO LOC: [facility] U#:[id number] AGE/SX: 39/M ROOM: RE07/29/[address]: Dr. Lary Ivey MD : 1985 BED: DIS: 07/29/2024 SPEC #: [id number] RECD: 07/29/24 13:01 STATUS: BIANKA VALENTIN #: [id number] JIL: 07/29/24 07:[address]: Lary Ivey DEPT: IMMUNOHISTOCHEMISTRY RECD BY: Abrahan Moncada ENTERED: 07/29/24 13:01 SP TYPE: IMMUNO OTHR DR: Kenzie Primary Care Phys Tissues: Gastric mucous membrane Procedures: H Pylori (initial) PHYSICIAN & INSTITUTION [place] [id number] SPECIMEN INFORMATION: Tissue Source: Antrum biopsy Clinical Info: Cholelithiasis and GERD Specimen Number: [id number] CPT code: 43184 METHODOLOGY: Deparaffinized sections of prefer/formalin-fixed tissue or PAP/DQ stained slides are incubated with monoclonal/polyclonal antibodies/oligonucleotide probes. Localization is made via biotin free immunoperoxidase method. Appropriate controls are performed and reacted as expected. Results on target cell population are indicated in the following table: RESULTS: ANTIBODY / CLONE RESULT H Pylori (polyclonal) negative These tests were developed and their performance characteristics determined by [facility]. They may not have been cleared or approved by the U.S. Food and Drug Administration. The FDA has determined that such clearance or approval is not necessary. The above immunohistochemical/dualISH markers are ordered and reviewed by the Pathologist. INTERPRETATION: Antrum, biopsy: Negative for Helicobacter pylori organisms. 07/30/2024
[2024-07-29 07:46] VITALS: BP 105/65; BP 120/69; PULSE 75; RESP 16; TEMP 36.5; O2SAT 93
--- NOTE | 2024-07-29 07:47 | OP.CCLET_ITS ---
07/29/2024 No Primary Care Physician Re : Upper GI endoscopy procedure for Myron Coughlin Dear Care Physician This procedure was performed on Monday, July 29, 2024. My impressions and recommendations are as follows: Impressions : - Z-line variable, 40 cm from the incisors. - A medium amount of food (residue) in the stomach. - Erythematous mucosa in the antrum. Biopsied. - No gross lesions in the entire esophagus. Recommendations : - Await pathology results. - Discharge patient to home. - Resume previous diet. - Continue present medications. My findings are described in the full procedure note, which is enclosed. If I can be of further assistance, please feel free to contact me at Doctor phone number(s): , Work: . Sincerely, MD Lary Elias MD 07/29/2024 7:46:59 AM This report has been signed electronically.
--- NOTE | 2024-07-29 07:47 | OP.EGD_ITS ---
Patient Name: yMron Coughlin Procedure Date: 07/29/2024 7:16 AM Date of : 1985 Age: 39 Procedure: Upper GI endoscopy Indications: Epigastric abdominal pain Providers: Lary Ivey MD Referring MD: Lary Ivey MD Medicines: Monitored Anesthesia Care Patient Profile: This is a 39 year old male. Complications: No immediate complications. Procedure: Pre-Anesthesia Assessment: - Prior to the procedure, a History and Physical was performed, and patient medications and allergies were reviewed. The patient's tolerance of previous anesthesia was also reviewed. The risks and benefits of the procedure and the sedation options and risks were discussed with the patient. All questions were answered, and informed consent was obtained. Prior Anticoagulants: The patient has taken no anticoagulant or antiplatelet agents. ASA Grade Assessment: Per anesthesia. After reviewing the risks and benefits, the patient was deemed in satisfactory condition to undergo the procedure. After obtaining informed consent, the endoscope was passed under direct vision. Throughout the procedure, the patient's blood pressure, pulse, and oxygen saturations were monitored continuously. The gastroscope was introduced through the mouth, and advanced to the second part of duodenum. The upper GI endoscopy was accomplished without difficulty. The patient tolerated the procedure well. Scope In: 7:33:53 AM Scope Out: 7:37:08 AM Total Procedure Duration Time 0 hours 3 minutes 15 seconds Findings: The Z-line was variable and was found 40 cm from the incisors. The cardia and gastric fundus were normal on retroflexion. A medium amount of food (residue) was found in the gastric body, in the prepyloric region of the stomach and at the pylorus. Mildly erythematous mucosa without bleeding was found in the gastric antrum. Biopsies were taken with a cold forceps for histology. Biopsies were taken with a cold forceps for Helicobacter pylori cultures. No gross lesions were noted in the entire esophagus. Impression: - Z-line variable, 40 cm from the incisors. - A medium amount of food (residue) in the stomach. - Erythematous mucosa in the antrum. Biopsied. - No gross lesions in the entire esophagus. Recommendation: - Await pathology results. - Discharge patient to home. - Resume previous diet. - Continue present medications. Procedure Code(s): --- Professional --- 18433, PT, Esophagogastroduodenoscopy, flexible, transoral; with biopsy, single or multiple Diagnosis Code(s): --- Professional --- K22.89, Other specified disease of esophagus K31.89, Other diseases of stomach and duodenum R10.13, Epigastric pain CPT copyright 2021 [employer]. All rights reserved. The codes documented in this report are preliminary and upon newspaper photo editor review may be revised to meet current compliance requirements. MD Lary Elias MD 07/29/2024 7:46:59 AM This report has been signed electronically. Number of Addenda: 0 Note Initiated On: 07/29/2024 7:16 AM
--- NOTE | 2024-07-29 07:49 | PCM.POST.ANE ---
Anesthesia: Postop Eval I Current Vital Signs Temperature: 97.7 F Pulse Rate: 77 Blood Pressure: 105/65 Respiratory Rate: 14 Pulse Ox: 93 Oxygen Delivery Method: Room Air Assessment Airway patent: Yes Spontaneous unlabored respirations: Yes Mental status: Asleep nausea: No Vomiting: No Anesthesia Complication: No Fluid Hydration Crystalloid volume administer (ml): 30 Total IV fluid infused: 30 Progress Note Anesthesia document: Postop Eval 1 completed: Yes
[2024-07-29 07:50] VITALS: BP 105/65; BP 120/69; BP 98/64; PULSE 77; PULSE 99; RESP 14; RESP 16; TEMP 36.5; O2SAT 93; O2SAT 94
[2024-07-29 07:55] VITALS: BP 101/68; BP 120/69; PULSE 78; RESP 16; TEMP 36.3; O2SAT 95
[2024-07-29 08:08] VITALS: BP 120/69
--- NOTE | 2024-07-29 09:12 | PCM.POSTANE2 ---
Anesthesia Postop Eval I Sum Postop Eval Completion status Anesthesia document: Postop Eval 1 completed: Yes Anesthesia Postop Eval I Summary Anesthesia Postop Eval I Summary: Anesthesia Postop Eval I: Assessment Summary Airway patent Yes 07/29/24 07:50 [email or web address] Spontaneous unlabored Yes 07/29/24 07:50 [email or web address] respirations Mental status Asleep 07/29/24 07:50 [email or web address] nausea No 07/29/24 07:50 [email or web address] Vomiting No 07/29/24 07:50 [email or web address] Anesthesia Postop Eval I: Fluid Summary Crystalloid volume administer 30 07/29/24 07:50 [email or web address] (ml) Colloids volume administered ( ml) Blood Product volume administered (ml) Total IV fluid infused 30 07/29/24 07:50 [email or web address] Anesthesia Postop Eval I: Summary Notes Anesthesia Complication No 07/29/24 07:50 [email or web address] Anesthesia Complication Comment: Post-operative progress note Anesthesia: Postop Eval II Evaluation Mental status: Awake and Calm Pain Level: 2 nausea: No Vomiting: No Complications Anesthesia Complication: No
== END 2024-07-29 08:15 | disposition home or self-care (01) ==
LOC: EN 06:17 → AC 06:22
PROVIDERS: Referring Provider Surgery; Visit Provider Surgery
PROC: 0DJ08ZZ Inspection of Upper Intestinal Tract, Via Natural or Artificial Opening Endoscopic (ICD-10-PCS; CPT 43235; principal; 2024-07-29 07:25)
DX: K29.70 Gastritis, unspecified, without bleeding (principal); K80.20 Calculus of gallbladder without cholecystitis without obstruction; Z79.899 Other long term (current) drug therapy
CPT/HCPCS: 43239; 88305; 88342; A4216; J2405

== ENCOUNTER 2024-10-21 04:53 | Emergency (ER) | payer BC, SELFPAY ==
[2024-10-21 04:55] VITALS: BP 142/81; PULSE 70; RESP 20; TEMP 36.8; O2SAT 100; BMI 23.8
--- NOTE | 2024-10-21 05:02 | CT_ITS ---
PROCEDURE: ABDOMEN/PELVIS W IV CONT ONLY 10/21/2024 REASON FOR EXAM: RIGHT FLANK PAIN TECHNIQUE: Abdomen and pelvis CT with intravenous contrast. Coronal and Sagittal reconstruction series were provided. PATIENT PREPARATION: Per protocol ORAL CONTRAST TYPE: None. CONTRAST: 100 cc Isovue 370 IV One or more dose reduction techniques were used (e.g., Automated exposure control, adjustment of the mA and/or kV according to patient size, use of iterative reconstruction technique. RADIATION DOSE SUMMARY: CTDlvol: 7.60 mGy DLP: 421.28 mGycm COMPARISON: 07/18/2024 FINDINGS: The lung bases appear clear. Contrast phase appears mildly early. Suggestion of possible hepatic steatosis. Possible small amount of focal fatty sparing along the gallbladder fossa. Small amount of layering gravel within a nondistended, noninflamed appearing gallbladder again noted. No evidence of biliary ductal dilation. The adrenal glands, kidneys, pancreas and spleen appear within limits. Bilateral symmetric nephrograms without hydronephrosis or perinephric stranding. Bilateral renal cysts again noted. Abdominal aorta appears within limits without aneurysm. No adenopathy identified. No bowel dilation or free air. Normal caliber appendix without secondary signs again noted. The bladder and prostate appear within limits. A very small amount of right pelvic free fluid again seen, nonspecific. Again possible bilateral hydroceles again seen. The visualized osseous structures appear within limits. CT/Abdomen/Pelvis W IV Cont ONLY IMPRESSION: Bilateral symmetric nephrograms without hydronephrosis or perinephric stranding . Bilateral renal cysts again noted. A very small amount of right pelvic free fluid again seen, nonspecific. Contrast phase appears mildly early. Suggestion of possible hepatic steatosis. Possible small amount of focal fatty sparing along the gallbladder fossa. Small amount of layering gravel within a nondistended, noninflamed appearing ga llbladder again noted. No evidence of biliary ductal dilation. Reading Location: [id number]
--- NOTE | 2024-10-21 05:04 | ED.VIS.GI ---
HPI HPI - GI History of Present Illness Chief Complaint: Abd Pain Informant: patient Abdominal Pain/Flank Pain Onset: Today Context: Sudden Onset Timing: Continuous Location: Right Flank Current Severity: Moderate Maximum Severity: Moderate Worsened by: Nothing Relieved by: Nothing Nausea/Vomiting/Emesis GI Symptom: Positive for Nausea and Vomiting Onset: Today Severity: Mild Diarrhea/Melena/Hematochezia GI Symptom: Negative for Diarrhea, Melena or Hematochezia Associated Symptoms Associated Symptoms: Negative for Dysuria, Frequency, Hematuria or Urgency Narrative Narrative: 39-year-old male history depression prior kidney stones. Awoke this morning about an hour ago around 4 AM with right flank pain. Associated nausea vomiting. No dysuria or hematuria. Similar pain in the past. Denies any fever. No trauma. No prior abdominal surgeries. Prior similar symptoms: Yes Recent Illness/Hospitalization: No PFSH PFSH Medical History Depression Anxiety Gastric reflux Hypoglycemia Home Medications ?Medication ?Instructions ?Recorded ?Last Taken ?Type omeprazole 40 mg capsule,delayed 40 mg PO DAILY #30 caps 07/29/24 Unknown Rx release oxycodone-acetaminophen 5 mg-325 1 tab PO Q6H PRN pain 10/21/24 Unknown History mg tablet Allergy/AdvReac Type Severity Reaction Status Date / Time No Known Allergies Allergy Verified 10/21/24 04:54 Social History Smoking Status: Never smoker alcohol intake: never substance use type: does not use ROS ROS ED ROS Narrative Right flank pain. Hour ago. Nausea vomiting. Constitutional Constitutional ED: Denies chills or fever(s) ENT ENT ED: Denies ear pain Cardiovascular Cardiovascular: Denies chest pain Respiratory/Chest Respiratory/Chest: Denies cough or dyspnea Gastrointestinal Gastrointestinal: Reports nausea and vomiting; Denies abdominal pain, constipation, diarrhea or melena Genitourinary Genitourinary ED: Denies dysuria or hematuria Musculoskeletal Musculoskeletal: Reports back pain; Denies arthralgias or myalgias Integumentary Denies abscess Neurologic Neurologic: Denies headache(s) Psychiatric Psychiatric: Denies anxiety Endocrine Endocrinology: Denies polydipsia Hematologic/Lymphatic Hematologic/Lymphatic: Denies easy bleeding Allergic/Immunologic Allergic/Immunologic ED: Denies mouth swelling, tongue swelling or urticaria EXAM Physical Exam Narrative Exam Narrative: 39-year-old male vital signs are stable afebrile. H EENT exam pupils round react light. Mytrex membranes. Neck nontender no JVD. No lymphadenopathy. Lungs clear to auscultation bilaterally. Heart regular rhythm rate about 70 no murmur. Chest wall and ribs nontender. Abdomen soft, nontender, nondistended normal bowel sounds without peritoneal signs. No Penny sign. No McBurney's point tenderness. No trauma. No distention or obstruction. Soft. Complaining of right flank pain is not reproducible. There is no ecchymosis or bruising. No rash. Patient is moving all 4 extremities. Nontender no edema. He is awake and alert. Answering questions following commands. Const Vital Signs: 10/21/24 04:55 10/21/24 05:54 10/21/24 06:00 Temperature 98.2 F Temperature Source Oral Pulse Rate 70 53 L 58 L Respiratory Rate 20 H 16 16 Blood Pressure 142/81 H 117/57 L 117/57 L Blood Pressure Mean 101 77 77 Pulse Ox 100 98 100 Oxygen Delivery Method Room Air Room Air Positive well nourished and well developed; Negative for obese, cachectic, contractures or unkempt General Appearance ED: well developed; Negative for unkempt, cachectic, contractures or pallor Nutritional Appearance: Negative for cachectic or obese HEENT Reports moist mucous membranes normocephalic and atraumatic Eyes PERRL and EOMs intact bilaterally Neck no lymphadenopathy, supple and no JVD Resp normal respiratory effort and clear to auscultation bilaterally Cardio regular rate, regular rhythm, S1 normal heart sound, S2 normal heart sound and no murmurs GI non-tender, non-distended and no masses Inspection: Negative for abdominal distention Auscultation: normoactive bowel sounds Palpation: soft; Negative for tender or guarding Back/Spine no CVA tenderness General Back: Negative for CVA tenderness Cervical Spine: Negative for cervical spine tenderness Thoracic Spine / Upper Back: Negative for thoracic spinal tenderness Lumbar Spine / Lower Back: Negative for lumbar spinal tenderness Extremity full ROM General Extremety ED: Negative for edema or tenderness General Extremity: Negative for edema Neuro CN's II-XII intact bilaterally and moves all extremities Sensorium / Orientation: alert, oriented to person, oriented to place and oriented to time; Negative for orientation impaired, confused or lethargic Motor Exam: strength 5/5 throughout Psych mental status grossly normal and thought process normal Appearance: Negative for unkempt Attitude: No agitated Mood & Affect: anxious; Negative for depressed or tearful Skin no wounds General Skin Exam: Negative for jaundice or pallor Lesions: no lesions Rashes: no rashes Trauma: Negative for abrasion MDM MDM MDM Narrative Medical decision making narrative: 39-year-old male right flank pain about an hour ago. Differential includes kidney stone versus other intra-abdominal pathology.. In the past has had similar pain they are unsure if it was kidney stone or gallbladder. He still has his gallbladder. There is no right upper quadrant pain. CAT scan labs to be obtained. To be treated with morphine, Zofran and Toradol. Repeat exam at 6:47 AM patient doing well. Resting comfortably. Mother is at bedside. We discussed his initial exam and findings. I suspect this is biliary colic and gallbladder attack. He does not have biliary obstruction. He does not have acute cholecystitis. There is no kidney stone. His other labs are unremarkable. His current exam is benign and not completely nontender. I will follow-up with a general surgeon when he feels he may need his gallbladder out. At this time it is not emergent. He knows to return if he has increasing pain, fever or intractable vomiting. History & Record Review Discussion w/independent historian: Patient and Family Additional record(s) reviewed:: Prior inpatient record, Prior outpatient record, Prior ED visit and Prior labs Lab Data Attestation: I reviewed the patient's lab results. Lab results narrative: CBC is unremarkable. White count 9.4. H&H 15 and 43. Platelets 262. Electrolytes show sodium 142. Gap 14. Normal BUN 19 creatinine 0.7. Glucose 137. Liver enzymes normal. Lipase normal at 34. Labs: Laboratory Results - last 24 hr 10/21/24 05:03 WBC 9.4 RBC 4.78 Hgb 15.2 Hct 43.4 MCV 90.8 MCH 31.8 MCHC 35.0 RDW Std Deviation 39.8 RDW Coeff of Jef 12.0 Plt Count 262 MPV 10.7 Immature Gran % (Auto) 0.200 Neut % (Auto) 44.7 L Lymph % (Auto) 47.9 H [place] % (Auto) 4.4 Eos % (Auto) 2.3 Baso % (Auto) 0.5 Absolute Neuts (auto) 4.2 Absolute Lymphs (auto) 4.52 H Nucleated RBC % 0 Sodium 142 Potassium 4.1 Chloride 104 Carbon Dioxide 23.9 Anion Gap 14 BUN 19 Creatinine 1.17 Estim Creat Clear Calc 79.25 Est GFR (MDRD) Non-Af 81 BUN/Creatinine Ratio 15.8 Glucose 137 H Calcium 9.5 Total Bilirubin 1.29 AST 17 ALT 17 Alkaline Phosphatase 102 Total Protein 7.0 Albumin 4.6 Globulin 2.4 Albumin/Globulin Ratio 1.9 Lipase 34 Radiography Diagnostic Testing: Clinical Impression(s) from Imaging Studies Abdomen/Pelvis CT 10/21/24 05:02 IMPRESSION: Bilateral symmetric nephrograms without hydronephrosis or perinephric stranding. Bilateral renal cysts again noted. A very small amount of right pelvic free fluid again seen, nonspecific. Contrast phase appears mildly early. Suggestion of possible hepatic steatosis. Possible small amount of focal fatty sparing along the gallbladder fossa. Small amount of layering gravel within a nondistended, noninflamed appearing gallbladder again noted. No evidence of biliary ductal dilation. Reading Location: [facility] Discharge Plan Triage Chief Complaint: Abd Pain ED Provider: Artem Allen Dx/Rx/DC Orders Clinical Impression: Abdominal pain, History of gallstones, Biliary colic Instructions: ED Gallstones with Biliary Colic Prescriptions: No Action omeprazole 40 mg capsule,delayed release(DR/EC) 40 mg PO DAILY Qty: 30 5RF oxycodone-acetaminophen 5-325 mg tablet 1 tab PO Q6H PRN (Reason: pain) Primary Care Provider: Care Physician,No Primary Referrals: Iván Longoria MD [Med Staff - Active Staff] - As Needed Care Physician,No Primary [Primary Care Provider] - Activity Restrictions/Additional Instructions: Your labs are normal. Your CAT scan shows the gallstones that you have had. But there is no gallbladder obstruction or infection. I suspect you have a gallbladder attack. Eventually you may need to have your gallbladder out. You can follow-up with a general surgeon and discuss it with them. Motrin and Tylenol for pain. Return if increasing pain, especially in the right upper quadrant, fever or intractable vomiting. Print Language: Armenian Disposition Disposition: Home, Self Care
[2024-10-21 05:13] LABS: Absolute Lymphocyte Count 4.52 X10^3/uL (0.83-4.51); Absolute Neutrophil Count 4.2 X10^3/uL (2.0-7.7); Basophil# 0.05 X10^3/uL; Basophil% 0.5 % (0-1); Eosinophil# 0.22 X10^3/uL; Eosinophils% 2.3 % (0-5); Hematocrit 43.4 % (40-54); Hemoglobin 15.2 g/dL (13.0-16.5); Lymphocyte # 4.52 X10^3/ul (0.83-4.51); Lymphocyte % 47.9 % (19-41); Mean Corpuscular Hgb 31.8 pg (27.0-32.0); Mean Corpuscular Volume 90.8 fL (80-94); Mean Platelet Vol. 10.7 fl (6.2-12.0); Monocyte# 0.42 X10^3/uL; Monocyte% 4.4 % (0-10); NRBC Flagged by Analyzer 0 % (0-5); Neutrophil # 4.21 X10^3/uL (2.7-7.7); Neutrophil % 44.7 % (47-70); Platelet Count 262 K/mm3 (150-450); RBC Distribution Width SD 39.8 fl (35.1-43.9); Red Blood Count 4.78 M/mm3 (4.6-6.2); White Blood Count 9.4 K/mm3 (4.4-11.0)
[2024-10-21] MEDS: morphine 8 MG/ML Syringe IV (05:14)
[2024-10-21] MEDS: 0.9% Normal Saline (1000mL) 1,000 ML 999 ML IV (05:14)
[2024-10-21] MEDS: Ketorolac 30 MG/ML Syringe IV (05:15)
[2024-10-21] MEDS: Ondansetron 4 MG/2 ML Vial IV (05:15)
[2024-10-21 05:37] LABS: ALB/GLOB Ratio 1.9 RATIO (0.9-2.4); AST(SGOT) 17 U/L (<=37); Alanine Aminotransfer ALT/SGPT 17 U/L (<=46); Albumin, Serum 4.6 g/dL (3.5-5.0); Alkaline Phosphatase 102 U/L (40-129); Anion Gap 14 (5-15); BUN 19 mg/dL (4-19); BUN/Creat Ratio 15.8 RATIO (10-20); Calcium,Total 9.5 mg/dL (7.6-11.0); Carbon Dioxide 23.9 mmol/L (21.0-32.0); Chloride 104 mmol/L (98-108); Creatinine, Serum 1.17 mg/dL (0.70-1.20); EST Glomerular Filtration Rate 81 (>60); Estimated Creatinine Clearance 79.25 ml/min (50-250); Globulin 2.4 g/dL (2.2-4.2); Glucose 137 mg/dL (70-99); Lipase 34 U/L (13-75); Potassium 4.1 mmol/L (3.3-5.1); Sodium Level 142 mmol/L (133-145); Total Bilirubin 1.29 mg/dL (0.00-1.30)
[2024-10-21 05:54] VITALS: BP 117/57; PULSE 53; RESP 16; O2SAT 98
[2024-10-21 06:00] VITALS: BP 117/57; PULSE 58; RESP 16; O2SAT 100
[2024-10-21 06:51] VITALS: BP 109/75; PULSE 46; RESP 14; TEMP 36.6; O2SAT 98
== END 2024-10-21 07:00 | disposition home or self-care (01) ==
PROVIDERS: Emergency Provider Emergency Medicine; Visit Provider Emergency Medicine
DX: K80.50 Calculus of bile duct without cholangitis or cholecystitis without obstruction (principal); R10.9 Unspecified abdominal pain; F32.A Depression, unspecified; K21.9 Gastro-esophageal reflux disease without esophagitis; Z87.19 Personal history of other diseases of the digestive system; Z87.442 Personal history of urinary calculi
CPT/HCPCS: 74177; 80053; 83690; 85025; 96361; 96374; 96375; 99283; Q9967; A4216; J2405

== ENCOUNTER 2024-10-22 20:57 | Inpatient (IN) | payer BC, SELFPAY ==
[2024-10-22 20:58] VITALS: BP 125/69; PULSE 66; RESP 18; TEMP 36.8; O2SAT 100; BMI 27.4
--- NOTE | 2024-10-22 21:22 | US_ITS ---
PROCEDURE: GALLBLADDER 10/22/2024 REASON FOR EXAM: PAIN COMPARISON: CT from 10/21/2024 FINDINGS: Liver: Mildly echogenic. Measures 16.8 cm. No focal hepatic mass. No intrahepatic biliary dilatation. Gallbladder: Positive Penny's sign. Trace pericholecystic fluid. Gallbladder sludge and stones are noted. Thickened gallbladder wall measuring up to 7 mm. Common bile duct: 6 mm. No intrahepatic biliary dilatation.. Pancreas: Within normal limits Other: Right kidney size is within normal limits. 3.6 x 2.8 x 2.9 cm cyst is noted within the right kidney. Trace ascites noted. US/Gallbladder IMPRESSION: Acute cholecystitis evidenced by gallstones, trace pericholecystic fluid, thick ened gallbladder wall, and positive Penny's sign. Trace ascites. Mild hepatic steatosis. Reading Location: [id number]
--- NOTE | 2024-10-22 21:24 | EDS_ITS ---
HPI <Dr. Nav Rivera DO - Last Filed: 10/22/24 23:46> History of Present Illness Chief Complaint: Abd Pain Informant: patient Narrative Narrative: 39-year-old male presenting to the emergency room for the evaluation of abdominal pain. Patient was seen earlier this year and follow-up with general surgery for cholelithiasis. He was seen in the emergency department yesterday with pain and vomiting he returns this evening with the same. He states that he would rate his pain 1 out of 10 this morning and gradually increased throughout the day. States he had some yellowing of his right hand that went away also today. No fevers. Denies black or bloody stools. Patient notes the pain is mostly in the right flank and the right side of the upper abdomen that he feels pain throughout the abdomen and up into his chest. PFS <Dr. Nav Rivera DO - Last Filed: 10/22/24 23:46> [facility] Medical History Depression Anxiety Gastric reflux Hypoglycemia Home Medications ?Medication ?Instructions ?Recorded ?Last Taken ?Type omeprazole 40 mg capsule,delayed 40 mg PO DAILY #30 ca ps 07/29/24 Unknown Rx release oxycodone-acetaminophen 5 mg-325 1 tab PO Q6H PRN pain 10/21/24 Unknown History mg tablet Allergy/AdvReac Type Severity Reaction Status Date / Time No Known Allergies Allergy Verified 10/22/24 20:59 Family History no significant family his Social History Smoking Status: Never smoker alcohol intake: never substance use type: does not use ROS <Dr. Nav Rivera DO - Last Filed: 10/22/24 23:46> ROS ED Constitutional Constitutional ED: Denies chills, fever(s) or weight loss Eyes Eyes: Denies change in vision or diplopia ENT ENT ED: Denies ear pain, rhinorrhea or sore throat Cardiovascular Cardiovascular: Denies chest pain, orthopnea, palpitations or racing heartbeat Respiratory/Chest Respiratory/Chest: Denies cough, dyspnea or orthopnea Gastrointestinal Gastrointestinal: Reports abdominal pain, nausea and vomiting; Denies diarrhea Genitourinary Genitourinary ED: Denies dysuria, hematuria or urinary frequency Musculoskeletal Musculoskeletal: Denies arthralgias or myalgias Integumentary Denies abscess or rash Neurologic Neurologic: Denies headache(s) or weakness Psychiatric Psychiatric: Denies anxiety, depression, suicidal ideation or suicidal thoughts Endocrine Endocrinology: Denies polydipsia, polyphagia or polyuria Allergic/Immunologic Allergic/Immunologic ED: Denies mouth swelling, tongue swelling or urticaria EXAM <Dr. Nav Rivera, DO - Last Filed: 10/22/24 23:46> Physical Exam Narrative Exam Narrative: Patient appears uncomfortable laying down in the bed Const Vital Signs: 10/22/24 20:58 10/22/24 22:58 10/23/24 00:00 Temperature 98.2 F Temperature Source Oral Pulse Rate 66 59 L 59 L Respiratory Rate 18 18 18 Blood Pressure 125/69 H 125/76 H 121/75 H Blood Pressure Mean 87 92 90 Pulse Ox 100 96 97 Oxygen Delivery Method Room Air Room Air Room Air Positive well nourished and well developed General Appearance ED: well developed HEENT Reports normocephalic, head/scalp atraumatic and moist mucous membranes Eyes PERRL and EOMs intact bilaterally General Eye ED: Negative for scleral icterus Neck no lymphadenopathy, supple and no JVD Resp normal respiratory effort and clear to auscultation bilaterally Cardio regular rate, regular rhythm and no murmurs GI GI Narrative: Patient reports diffuse tenderness to palpation most pronounced on the right side of his abdomen. Auscultation: normoactive bowel sounds Palpation: soft, tender and guarding Back/Spine no CVA tenderness and normal ROM Extremity normal to inspection General Extremety ED: Negative for edema General Extremity: Negative for edema Neuro oriented x3 and CN's II-XII intact bilaterally Sensorium / Orientation: alert Motor Exam: strength 5/5 throughout Psych mental status grossly normal Mood & Affect: Negative for depressed or tearful Skin no rashes or lesions noted and no wounds <Dr. Phu Bond, DO - Last Filed: 10/23/24 00:14> Physical Exam Const Vital Signs: 10/22/24 20:58 10/22/24 22:58 10/23/24 00:00 Temperature 98.2 F Temperature Source Oral Pulse Rate 66 59 L 59 L Respiratory Rate 18 18 18 Blood Pressure 125/69 H 125/76 H 121/75 H Blood Pressure Mean 87 92 90 Pulse Ox 100 96 97 Oxygen Delivery Method Room Air Room Air Room Air [facility] <Dr. Nav Rivera, DO - Last Filed: 10/22/24 23:46> [facility] Narrative Medical decision making narrative: Differential diagnosis includes but not limited to cholelithiasis cho ledocholithiasis acute cholecystitis pancreatitis ascending cholangitis Patient's white count is elevated 14.2 up from yesterday's level hemoglobin 13.7 platelet count of 166 total bilirubin is now 4.59 with a direct bilirubin of 0.55 transaminases are within normal limits alkaline phosphatase 98 lipase is 19. Creatinine 1.07. Patient received Dilaudid Zofran as well as IV fluids. Gallbladder ultrasound was obtained which demonstrates some trace periCholecystic fluid cholelithiasis and sludge thickened gallbladder wall positive sonographic Penny sign. CBD is 6 mm gallbladder wall measuring up to 7 mm. History & Record Review Discussion w/independent historian: Patient Additional record(s) reviewed:: Prior outpatient record, Prior ED visit and Prior labs Lab Data Attestation: I reviewed the patient's lab results. Labs: Laboratory Results - last 24 hr 10/22/24 21:10 WBC 14.2 H RBC 4.22 L Hgb 13.7 Hct 37.9 L MCV 89.8 MCH 32.5 H MCHC 36.1 H RDW Std Deviation 39.0 RDW Coeff of Jef 11.9 Plt Count 166 MPV 11.0 Immature Gran % (Auto) 0.600 Neut % (Auto) 84.5 H Lymph % (Auto) 8.5 L [place] % (Auto) 5.9 Eos % (Auto) 0.2 Baso % (Auto) 0.3 Absolute Neuts (auto) 12.0 H Absolute Lymphs (auto) 1.20 Nucleated RBC % 0 Sodium 140 Potassium 3.3 Chloride 102 Carbon Dioxide 25.4 Anion Gap 13 BUN 14 Creatinine 1.07 Estim Creat Clear Calc 93.65 Est GFR (MDRD) Non-Af 91 BUN/Creatinine Ratio 12.7 Glucose 104 H Calcium 9.1 Total Bilirubin 4.59 H Direct Bilirubin 0.55 H AST 25 ALT 33 Alkaline Phosphatase 98 Total Protein 7.1 Albumin 4.4 Globulin 2.7 Lipase 19 Radiography Diagnostic Testing: Clinical Impression(s) from Imaging Studies Gallbladder Ultrasound 10/22/24 21:22 IMPRESSION: Acute cholecystitis evidenced by gallstones, trace pericholecystic fluid, thi ckened gallbladder wall, and positive Penny's sign. Trace ascites. Mild hepatic steatosis. Reading Location: [facility] Management Discussion w/another healthcare provider: Steward/Stewardess (Dr. Ivey) <Dr. Phu Bond DO - Last Filed: 10/23/24 00:14> [facility] MDM Narrative Medical decision making narrative: Differential diagnosis includes but not limited to cholelithiasis choledocholithiasis acute cholecystitis pancreatitis ascending cholangitis Patient's white count is elevated 14.2 up from yesterday's level hemoglobin 13.7 platelet count of 166 total bilirubin is now 4.59 with a direct bilirubin of 0.55 transaminases are within normal limits alkaline phosphatase 98 lipase is 19. Creatinine 1.07. Patient received Dilaudid Zofran as well as IV fluids. Gallbladder ultrasound was obtained which demonstrates some trace periCholecystic fluid cholelithiasis and sludge thickened gallbladder wall positive sonographic Penny sign. CBD is 6 mm gallbladder wall measuring up to 7 mm. Addendum Phu Bond DO Discussed case with Dr. Ivey who is requesting repeating the liver profile which was repeated. She will accept patient for admission. Discussed the plan with the patient and mother at bedside they are agreeable this plan he is requesting more pain medication which was ordered as well. All question concerns answered at bedside. Lab Data Labs: Laboratory Results - last 24 hr 10/22/24 21:10 WBC 14.2 H RBC 4.22 L Hgb 13.7 Hct 37.9 L MCV 89.8 MCH 32.5 H MCHC 36.1 H RDW Std Deviation 39.0 RDW Coeff of Jef 11.9 Plt Count 166 MPV 11.0 Immature Gran % (Auto) 0.600 Neut % (Auto) 84.5 H Lymph % (Auto) 8.5 L [place] % (Auto) 5.9 Eos % (Auto) 0.2 Baso % (Auto) 0.3 Absolute Neuts (auto) 12.0 H Absolute Lymphs (auto) 1.20 Nucleated RBC % 0 Sodium 140 Potassium 3.3 Chloride 102 Carbon Dioxide 25.4 Anion Gap 13 BUN 14 Creatinine 1.07 Estim Creat Clear Calc 93.65 Est GFR (MDRD) Non-Af 91 BUN/Creatinine Ratio 12.7 Glucose 104 H Calcium 9.1 Total Bilirubin 4.59 H Direct Bilirubin 0.55 H AST 25 ALT 33 Alkaline Phosphatase 98 Total Protein 7.1 Albumin 4.4 Globulin 2.7 Lipase 19 Radiography Diagnostic Testing: Clinical Impression(s) from Imaging Studies Gallbladder Ultrasound 10/22/24 21:22 IMPRESSION: Acute cholecystitis evidenced by gallstones, trace pericholecystic fluid, thickened gallbladder wall, and positive Penny's sign. Trace ascites. Mild hepatic steatosis. Reading Location: [id number] Discharge Plan Dx/Rx/DC Orders Clinical Impression: Biliary colic, Acute cholecystitis Disposition [facility]
[2024-10-22] MEDS: Ondansetron 4 MG/2 ML Vial IV (21:33)
[2024-10-22] MEDS: HYDROmorphone 1 MG/ML Syringe IV (21:33)
[2024-10-22] MEDS: 0.9% Normal Saline (1000mL) 1,000 ML 999 ML IV (21:33)
[2024-10-22 21:50] LABS: Basophil# 0.04 X10^3/uL; Basophil% 0.3 % (0-1); Eosinophil# 0.03 X10^3/uL; Eosinophils% 0.2 % (0-5); Hematocrit 37.9 % (40-54); Hemoglobin 13.7 g/dL (13.0-16.5); Lymphocyte % 8.5 % (19-41); Mean Corp Hgb Conc 36.1 g/dL (32-36); Mean Corpuscular Hgb 32.5 pg (27.0-32.0); Mean Corpuscular Volume 89.8 fL (80-94); Monocyte# 0.84 X10^3/uL; Monocyte% 5.9 % (0-10); NRBC Flagged by Analyzer 0 % (0-5); Neutrophil # 12.01 X10^3/uL (2.7-7.7); Neutrophil % 84.5 % (47-70); Platelet Count 166 K/mm3 (150-450); RBC Distribution Width CV 11.9 % (11.6-14.6); Red Blood Count 4.22 M/mm3 (4.6-6.2); White Blood Count 14.2 K/mm3 (4.4-11.0)
[2024-10-22 22:19] LABS: Lipase 19 U/L (13-75)
[2024-10-22 22:27] LABS: AST(SGOT) 25 U/L (<=37); Alanine Aminotransfer ALT/SGPT 33 U/L (<=46); Albumin, Serum 4.4 g/dL (3.5-5.0); Alkaline Phosphatase 98 U/L (40-129); Anion Gap 13 (5-15); BUN 14 mg/dL (4-19); BUN/Creat Ratio 12.7 RATIO (10-20); Bilirubin, Direct 0.55 mg/dL (0.00-0.30); Calcium,Total 9.1 mg/dL (7.6-11.0); Carbon Dioxide 25.4 mmol/L (21.0-32.0); Chloride 102 mmol/L (98-108); Creatinine, Serum 1.07 mg/dL (0.70-1.20); EST Glomerular Filtration Rate 91 (>60); Estimated Creatinine Clearance 93.65 ml/min (50-250); Globulin 2.7 g/dL (2.2-4.2); Glucose 104 mg/dL (70-99); Potassium 3.3 mmol/L (3.3-5.1); Protein, Total 7.1 g/dL (5.9-8.4); Sodium Level 140 mmol/L (133-145); Total Bilirubin 4.59 mg/dL (0.00-1.30)
[2024-10-22] MEDS: HYDROmorphone 0.5 MG/0.5 ML SYRINGE IV (22:41)
[2024-10-22 22:58] VITALS: BP 125/76; PULSE 59; RESP 18; O2SAT 96
[2024-10-22] MEDS: Piperacil/Tazobactam 4.5 GM in 0.9% Normal Saline (100mL MB+) 100 ML IV (23:02)
[2024-10-23] VITALS (19 sets, daily range): BP systolic 104–131; BP diastolic 55–75; PULSE 52–82; RESP 16–20; TEMP 36.6–37.5; O2SAT 92–100; BMI 23.1
[2024-10-23] MEDS: HYDROmorphone 1 MG/ML Syringe IV ×2 (00:20→02:36)
[2024-10-23] MEDS: Ondansetron 4 MG/2 ML Vial IV ×2 (00:20→05:22)
[2024-10-23] MEDS: oxyCODONE 5 MG Tablet PO (01:05)
[2024-10-23] MEDS: 0.9% Normal Saline (1000mL) 1,000 ML 125 ML IV ×2 (01:05→09:27)
[2024-10-23] MEDS: Pantoprazole Sodium 40 MG in 0.9% Normal Saline (100mL MB+) 100 ML 330 MG IV ×2 (01:06→21:37)
[2024-10-23 01:50] LABS: AST(SGOT) 37 U/L (<=37); Alanine Aminotransfer ALT/SGPT 41 U/L (<=46); Albumin, Serum 3.8 g/dL (3.5-5.0); Alkaline Phosphatase 87 U/L (40-129); Bilirubin, Direct 0.85 mg/dL (0.00-0.30); Globulin 2.3 g/dL (2.2-4.2); Protein, Total 6.1 g/dL (5.9-8.4); Total Bilirubin 4.85 mg/dL (0.00-1.30)
--- NOTE | 2024-10-23 05:00 | EKG12_ITS ---
Test Reason : AM EKG Blood Pressure : */* mmHG Vent. Rate : 59 BPM Atrial Rate : 59 BPM P-R Int : 120 ms QRS Dur : 102 ms QT Int : 398 ms P-R-T Axes : 57 62 50 degrees QTcB Int : 394 ms Sinus bradycardia Incomplete right bundle branch block Borderline ECG No previous ECGs available Confirmed by VINCENT JOHNS, RADHA ([id number]), art editor DESIRAE GRECO ([id number]) on 10/27/2024 6:56:13 AM Referred By: Nav Rivera Confirmed By: RADHA KAUR MD
[2024-10-23] MEDS: 0.9% Normal Saline (250mL Bag) 250 ML 15 ML IV (05:22)
[2024-10-23] MEDS: HYDROmorphone 0.5 MG/0.5 ML SYRINGE IV ×2 (05:22→07:53)
[2024-10-23] MEDS: Piperacil/Tazobactam 3.375 GM in 0.9% Normal Saline (50mL MB+) 50 ML IV ×3 (05:23→22:44)
[2024-10-23] MEDS: 0.9% Saline Lock 10 ML Syringe IV (05:25)
[2024-10-23 05:33] LABS: Absolute Lymphocyte Count 1.34 X10^3/uL (0.83-4.51); Absolute Neutrophil Count 20.7 X10^3/uL (2.0-7.7); Basophil# 0.05 X10^3/uL; Basophil% 0.2 % (0-1); Hematocrit 40.9 % (40-54); Hemoglobin 14.7 g/dL (13.0-16.5); Lymphocyte # 1.34 X10^3/ul (0.83-4.51); Lymphocyte % 5.7 % (19-41); Mean Corp Hgb Conc 35.9 g/dL (32-36); Mean Corpuscular Hgb 32.8 pg (27.0-32.0); Mean Corpuscular Volume 91.3 fL (80-94); Monocyte# 1.21 X10^3/uL; Monocyte% 5.2 % (0-10); NRBC Flagged by Analyzer 0 % (0-5); Neutrophil # 20.69 X10^3/uL (2.7-7.7); POSITIVE DIFFERENTIAL YES; Platelet Count 202 K/mm3 (150-450); RBC Distribution Width CV 12.2 % (11.6-14.6); Red Blood Count 4.48 M/mm3 (4.6-6.2); White Blood Count 23.5 K/mm3 (4.4-11.0)
[2024-10-23 05:34] LABS: Differential Indicated SCAN CRITERIA MET
[2024-10-23 05:49] LABS: AST(SGOT) 34 U/L (<=37); Alanine Aminotransfer ALT/SGPT 47 U/L (<=46); Albumin, Serum 4.1 g/dL (3.5-5.0); Alkaline Phosphatase 95 U/L (40-129); Anion Gap 12 (5-15); BUN 12 mg/dL (4-19); BUN/Creat Ratio 10.9 RATIO (10-20); Bilirubin, Direct 1.04 mg/dL (0.00-0.30); Calcium,Total 8.8 mg/dL (7.6-11.0); Carbon Dioxide 21.7 mmol/L (21.0-32.0); Chloride 105 mmol/L (98-108); Creatinine, Serum 1.07 mg/dL (0.70-1.20); EST Glomerular Filtration Rate 91 (>60); Estimated Creatinine Clearance 89.67 ml/min (50-250); Globulin 2.4 g/dL (2.2-4.2); Glucose 116 mg/dL (70-99); Protein, Total 6.5 g/dL (5.9-8.4); Sodium Level 139 mmol/L (133-145); Total Bilirubin 5.68 mg/dL (0.00-1.30)
--- NOTE | 2024-10-23 08:18 | HP.PCM.SX_ITS ---
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 However by 7 AM pain was pretty much resolved. CAT scan did show small layering gravel and nondistended noninflamed gallbladder and no biliary duct dilatation. Patient was sent home. However upon going home patient could not abdominal pain did come back and increased did have some nausea and vomiting with this. Patient had a gallbladder ultrasound which did show acute cholecystitis with some trace pericholecystic fluid gallbladder sludge and stones thickening of the wall report says 7 mm I do think that was an over measurement. Also positive Penny sign per report. Patient's white blood count was 14 this morning is 23 even with IV Zosyn. Patient's LFTs are normal except he does have a total bilirubin of 5.6 but direct is only 1.04 AST and ALT and alk phos are all within normal limits. Patient states initially the pain started on 10/22 at 4 AM however upon further talk to him he did eat at 7 PM the night before and had some mashed potatoes from a restaurant as well as a couple bites of a burger which patient states he did not have much of an appetite at that time so stopped eating. Patient has been taking his omeprazole at home. [facility] Medical History Depression Anxiety Gastric reflux Hypoglycemia Home Medications ?Medication ?Instructions ?Recorded ?Last Taken ?Type omeprazole 40 mg capsule,delayed 40 mg PO DAILY #30 ca ps 07/29/24 Unknown Rx release oxycodone-acetaminophen 5 mg-325 1 tab PO Q6H PRN pain 10/21/24 Unknown History mg tablet Allergy/AdvReac Type Severity Reaction Status Date / Time No Known Allergies Allergy Verified 10/22/24 20:59 Family History no significant family his Social History Smoking Status: Never smoker alcohol intake: never substance use type: does not use Vital Signs Vital Signs Vital Signs: 10/22/24 20:58 10/22/24 22:58 10/23/24 00:00 Temperature 98.2 F Temperature Source Oral Pulse Rate 66 59 L 59 L Respiratory Rate 18 18 18 Respiratory Effort Respiratory Depth Respiratory Pattern Blood Pressure 125/69 H 125/76 H 121/75 H Blood Pressure Mean 87 92 90 Blood Pressure Source Blood Pressure Position Blood Pressure Location Pulse Ox 100 96 97 Oxygen Delivery Method Room Air Room Air Room Air 10/23/24 00:13 10/23/24 00:13 10/23/24 00:51 Temperature 98.6 F 98.6 F 97.9 F Temperature Source Oral Temporal Pulse Rate 58 L 59 L 52 L Respiratory Rate 18 18 16 Respiratory Effort Respiratory Depth Respiratory Pattern Blood Pressure 121/75 H 121/75 H 113/64 Blood Pressure Mean 90 90 80 Blood Pressure Source Monitor Blood Pressure Position Semi-Fowlers Blood Pressure Location Right Arm Pulse Ox 97 97 99 Oxygen Delivery Method Room Air Room Air 10/23/24 01:15 10/23/24 05:30 Temperature 98 F Temperature Source Temporal Pulse Rate 62 Respiratory Rate 16 Respiratory Effort Normal Non-Labored Respiratory Depth Normal Respiratory Pattern Normal Blood Pressure 128/69 H Blood Pressure Mean 88 Blood Pressure Source Monitor Blood Pressure Position Semi-Fowlers Blood Pressure Location Right Arm Pulse Ox 94 Oxygen Delivery Method Room Air Room Air Weight Weight: 152 lb 5.431 oz Body Mass Index (BMI) 23.1 Physical Exam Const alert, oriented x3 and no apparent distress HEENT normocephalic and head/scalp atraumatic Resp normal respiratory effort Cardio regular rate GI soft to palpation; Negative for non-distended Palpation: tender epigastric and other (Mostly epigastric but otherwise mild diffuse); Negative for guarding Extremity no clubbing, cyanosis or edema Neuro CN's II-XII intact bilaterally Psych mental status grossly normal Results Lab / Micro Data 10/23/24 05:21 10/23/24 05:21 Labs: Laboratory Results - last 24 hr 10/22/24 21:10: WBC 14.2 H, RBC 4.22 L, Hgb 13.7, Hct 37.9 L, MCV 89.8, MCH 32.5 H, MCHC 36.1 H, RDW Std Deviation 39.0, RDW Coeff of Jef 11.9, Plt Count 166, MPV 11.0, Immature Gran % (Auto) 0.600, Neut % (Auto) 84.5 H, Lymph % (Auto) 8.5 L, [place] % (Auto) 5.9, Eos % (Auto) 0.2, Baso % (Auto) 0.3, Absolute Neuts (auto) 12.0 H, Absolute Lymphs (auto) 1.20, Nucleated RBC % 0, Sodium 140, Potassium 3.3, Chloride 102, Carbon Dioxide 25.4, Anion Gap 13, BUN 14, Creatinine 1.07, Estim Creat Clear Calc 93.65, Est GFR (MDRD) Non-Af 91, BUN/Creatinine Ratio 12.7, Glucose 104 H, Calcium 9.1, Total Bilirubin 4.59 H, Direct Bilirubin 0.55 H, AST 25, ALT 33, Alkaline Phosphatase 98, Total Protein 7.1, Albumin 4.4, Globulin 2.7, Lipase 19 10/23/24 00:54: Total Bilirubin 4.85 H, Direct Bilirubin 0.85 H, AST 37, ALT 41, Alkaline Phosphatase 87, Total Protein 6.1, Albumin 3.8, Globulin 2.3 10/23/24 05:21: WBC 23.5 H, RBC 4.48 L, Hgb 14.7, Hct 40.9, MCV 91.3, MCH 32.8 H , MCHC 35.9, RDW Std Deviation 41.0, RDW Coeff of Jef 12.2, Plt Count 202, MPV 11.0, Immature Gran % (Auto) 0.900, Neut % (Auto) 88.0 H, Lymph % (Auto) 5.7 L, [place] % (Auto) 5.2, Eos % (Auto) 0.0, Baso % (Auto) 0.2, Absolute Neuts (auto) 20.7 H, Absolute Lymphs (auto) 1.34, Nucleated RBC % 0, Differential Comment COMMENT, Sodium 139, Potassium 4.0, Chloride 105, Carbon Dioxide 21.7, Anion Gap 12, BUN 12, Creatinine 1.07, Estim Creat Clear Calc 89.67, Est GFR (MDRD) Non-Af 91, BUN/Creatinine Ratio 10.9, Glucose 116 H, Calcium 8.8, Total Bilirubin 5.68 H, Direct Bilirubin 1.04 H, AST 34, ALT 47, Alkaline Phosphatase 95, Total Protein 6.5, Albumin 4.1, Globulin 2.4 Imaging Radiology Impression Gallbladder Ultrasound 10/22/24 21:22 IMPRESSION: Acute cholecystitis evidenced by gallstones, trace pericholecystic fluid, thickened gallbladder wall, and positive Penny's sign. Trace ascites. Mild hepatic steatosis. Reading Location: [id number] Assessment & Plan Assessment/Plan (1) Acute cholecystitis: PLAN: Plan Reviewed the anatomy with the patient and discussed the procedure: laparoscopic cholecystectomy with possible cholangiograms, possible open. Review risks including but not limited to bleeding, infection, hernia, bile leak, retained gallstones requiring another procedure ERCP- Endoscopic Retrograde Cholangiopancreatography, injury to another organ (bile ducts, common bile duct, small bowel, etc.) and conversion to an open procedure. All questions were answered. Lary Ivey M.D. Pager: [phone] [facility] [address] [place] [address], [address] [place] [address] Office: [phone]
--- NOTE | 2024-10-23 12:38 | NURSING ---
pt to surgery
--- NOTE | 2024-10-23 12:47 | PRE.ANES_ITS ---
ASA Classification* ASA Classification ASA Classification: 2 Assessment & Plan Anesthesia* Anesthesia Assessment Anesthesia Assessment: Discussed sedation and/or anesthesia options, risks, benefits, and alternatives with patient/parents/legal guardian/POA. Questions invited. The patient/parents/legal guardian/POA seems to understand and agrees to proceed with anesthesia plan. Reviewed the physical assessment, medical history, allergy history and patient home medications list prior to surgery/procedure/anesthetic and documented any changes. Performed airway and anesthesia risk assessments. Anesthesia Type Anesthesia Type: General Anesthesia Focused Assessment* Temperature: 98.5 F Pulse Rate: 75 Blood Pressure: 120/75 Respiratory Rate: 16 Pulse Ox: 92 Airway Assessment Mouth opens: >3 cm Mallampati Score: II Focused Labs Anesthesia Preop lab: CBC WBC 23.5 K/mm3 (4.4-11.0) H 10/23/24 05: 5 RBC 4.48 M/mm3 (4.6-6.2) L 10/23/24 05:10/23/24 Hgb 14.7 g/dL (13.0-16.5) 10/23/24 05:21 10/23/24 Hct 40.9 % (40-54) 10/23/24 05:21 10/23/24 Plt Count 202 K/mm3 (150-450) 10/23/24 05:21 10/23/24 CHEMISTRY Potassium 4.0 mmol/L (3.3-5.1) 10/23/24 05:21 10/23/24 Sodium 139 mmol/L (133-145) 10/23/24 05:21 10/23/24 BUN 12 mg/dL (4-19) 10/23/24 05:21 10/23/24 Creatinine 1.07 mg/dL (0.70-1.20) 10/23/24 05:21 10/23/24 Glucose 116 mg/dL (70-99) H 10/23/24 05:21 10/23/24 POC Glucose 127 mg/dL (74-106) H 07/18/24 08:12 07/18/24 COAG Pre-Assessment Diagnosis/Proposed Procedure Planned Operative Procedure(s): Laparoscopic cholecystectomy. 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 When Was Last Pacemaker Check QUESTION #4 FULL TEXT: You/Your Family Experience fever (hyperthermia) with Anesthesia Last Oral Intake Last Oral intake: Last Oral Intake NPO since 00:00 10/23/24 11:08 Meds taken in AM with sips of water? Meds patient instructed to take am of surgery PONV PONV - radiator core tester: PONV - radiator core tester Female HX of Motion Sickness HX of N/V After Surgery Non-Smoker Duration of Surgery greater than 60 minutes Number of Risk Factors PONV Score Height & Weight Height & Weight: Anesthesia: Height & Weight Height 5 ft 8 in 10/23/24 11:08 Weight: 69.1 kg 10/23/24 11:08 Body Mass Index (BMI) 23.1 10/23/24 11:08 Respiratory Assessment Respiratory Assessment - radiator core tester: Respiratory Tract Infection Hx - radiator core tester Hx Respiratory Tract Infection No 10/23/24 00:52 STOP Sleep Apnea STOP Sleep Apnea - radiator core tester: STOP Sleep Apnea - radiator core tester Hx Hypertension No 10/23/24 00:48 Hx Sleep Apnea No 10/23/24 00:48 CPAP BIPAP Do you snore loudly (louder No 10/23/24 00:48 than talking or can be heard Do you often feel tired/ No 10/23/24 00:48 fatigued/ sleepy during daytime? Has anyone observed you stop No 10/23/24 00:48 breathing during sleep? STOP Results Negative 10/23/24 00:48 QUESTION #5 FULL TEXT : Do you snore loudly (louder than talking or can be heard through closed doors)? 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 Specify any problems Hx of Preganancy in last 3 N/A 10/23/24 00:48 Months Nurse Filling Out Transfusion TMELLOR 10/23/24 00:48 & Questions: Date: 10/23/24 10/23/24 00:48 Time: 00:51 10/23/24 00:48 Patient unable to answer at this time (ie. confused, unrespo /Reproduction History /Reproductive History - radiator core tester: /Reproductive Hx- radiator core tester Hx Now Gestational Age (in weeks): EDC: Hx Hx Para Hx Section SAB No 10/21/24 13:17 Active Medications Active Medications: Current Medications Generic Name Dose Route Start Last Admin Trade Name Freq PRN Reason Stop Dose Admin Acetaminophen 650 mg 10/23/24 00:42 Acetaminophen 325 Mg Tablet PO Q6H PRN PRN Pain Score 1-10 Hydromorphone HCl 0.5 - 1 mg 10/23/24 00:42 10/23/24 07:53 Hydromorphone 0.5 Mg/0.5 Ml Syringe IV 0.5 mg Q2H PRN PRN Administration Pain Score 1-10 Hydromorphone HCl 0.5 - 1 mg 10/23/24 00:47 10/23/24 02:36 Hydromorphone 1 Mg/Ml Syringe IV 1 mg Q2H PRN PRN Administration Pain Score 1-10 Sodium Chloride 1,000 mls @ 125 mls/hr 10/23/24 00:42 10/23/24 12:33 IV 0 mls/hr .Q8H MYLENE Infusion Piperacillin Sod/Tazobactam 50 mls @ 12.5 mls/hr 10/23/24 06:00 10/23/24 09:27 Sod 3.375 gm/ Sodium Chloride IV Infused Q8 MYLENE Infusion Pantoprazole Sodium 40 mg/ 110 mls @ 330 mls/hr 10/23/24 00:42 10/23/24 01:26 Sodium Chloride IV Infused 2200 MYLENE Infusion Sodium Chloride 250 mls @ 15 mls/hr 10/23/24 00:43 10/23/24 05:25 IV 0 mls/hr .[id number] PRN Infusion Saline Flush Ondansetron HCl 4 mg 10/23/24 00:42 10/23/24 05:22 Ondansetron 4 Mg/2 Ml Vial IV 4 mg Q8H PRN PRN Administration NAUSEA Oxycodone HCl 5 - 10 mg 10/23/24 00:42 10/23/24 01:05 Oxycodone 5 Mg Tablet PO 10 mg Q4H PRN PRN Administration Pain Score 1-10 Sodium Chloride 10 - 40 ml 10/23/24 00:43 10/23/24 05:25 0.9% Saline Lock 10 Ml Syringe IV 10 ml UD PRN Administration SALINE FLUSH PFSH Medical History Depression Anxiety Gastric reflux Hypoglycemia Home Medications ?Medication ?Instructions ?Recorded ?Last Taken ?Type omeprazole 40 mg capsule,delayed 40 mg PO DAILY #30 ca ps 07/29/24 Unknown Rx release oxycodone-acetaminophen 5 mg-325 1 tab PO Q6H PRN pain 10/21/24 Unknown History mg tablet Allergy/AdvReac Type Severity Reaction Status Date / Time No Known Allergies Allergy Verified 10/22/24 20:59 Family History no significant family his Social History Smoking Status: Never smoker alcohol intake: never substance use type: does not use Review of Systems (Anesthesia) ROS Narrative System reviewed and no additional complaints, except as documented.
--- NOTE | 2024-10-23 13:30 | GALL_PTH ---
PATIENT: ROMANA RICARDO LOC: [facility] U#:[id number] AGE/SX: 39/M ROOM: TN316 RE10/23/[address]: Dr. Lary Ivey MD : 1985 BED: 1 DIS: 10/25/2024 SPEC #: [id number] RECD: 10/23/24 16:58 STATUS: BIANKA REMonserrat #: [id number] JIL: 10/23/24 13:[address]: Lary Ivey DEPT: SURGICAL PATHOLOGY RECD BY: Abrahan Moncada ENTERED: 10/27/24 08:38 SP TYPE: DEMETRIO NAVAS DR: Dr. Nav Rivera, DO No Primary Care Phys Tissues: A - Gallbladder, NOS Procedures: Surgery Specimen Level III HEADER OPERATION: Laparoscopic cholecystectomy, subtotal PRE-OP DIAGNOSIS: Acute cholecystitis TISSUE SUBMITTED: A- Gallbladder MICROSCOPIC DIAGNOSIS A. Gallbladder, acute cholecystitis, subtotal cholecystectomy: Acute gangrenous cholecystitis. MICROSCOPIC DESCRIPTION Slides are reviewed. GROSS DESCRIPTION A. Received in formalin in a container labeled with the patient's name, date of , and gallbladder is a previously disrupted, subtotal cholecystectomy specimen measuring 4.9 x 3.9 x 2.3 cm overall. No distinct cystic duct is grossly recognized. There is a 2.5 x 2.0 cm shaggy transmural defect (inked black). The serosa is ernandez-brown and roughened with adhesions. The specimen is opened to reveal black-ernandez, dull and dusky mucosa with possible necrosis. The wall thickness ranges from 0.3 to 1.0 cm. No stones are identified in the specimen or in the container. [employer] sections:A1. Perpendicular sections from defect to denuded mucosaA2. Full-thickness sections [facility] 10-27-2024 CPT:15365
[2024-10-23] MEDS: Bupivacaine Mpf 0.5% 30 ML VIAL (14:30)
--- NOTE | 2024-10-23 14:49 | PCM.OPRPT ---
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 Lathe Sander: Artem Welch Tasks completed by surgical first assistant: Opening & closing and Retracting Type of Anesthesia: General/Supplemental RN Documented Start/Stop Times: Operation Date: 10/23/24 13:30 Case Time Anesthesia Start 10/23/24 13:21 Into Room 10/23/24 13:21 Procedure Start 10/23/24 13:37 Procedure End 10/23/24 14:57 Anesthesia End 10/23/24 15:02 Out of Room 10/23/24 15:02 Into Recovery 10/23/24 15:05 Out of Recovery 10/23/24 16:23 Procedure Start Time: 13:37 Procedure Stop Time: 14:57 Select all DRAINS/GRAFTS/IMPLANTS that apply: None (straight cath 1300 cc at end of case) and Drains Drain details: 15 [place] round MAXWELL Special Medications: Zosyn 3.375 g IV every 8 hours for acute cholecystitis Estimated Blood Loss: 20 cc Specimen collected: Yes Description of specimen(s) removed: Gallbladder wall Description of surgery: Indications: this is a 39 year-old male who developed abdominal pain/nausea/vomiting and on workup was found to have cholelithiasis, with a normal common bile duct. Laparoscopic cholecystectomy was elected. Description procedure: The patient was placed on operating table in supine position. A timeout was completed verifying correct patient, procedure, site, position and special equipment prior to beginning procedure. General Anesthesia was induced. The abdomen was prepped and draped in usual sterile fashion. An incision was made in the natural skin line below the umbilicus. The fascia was elevated and incised. The peritoneum was elevated and incised. Entry into the peritoneum was confirmed visually and no bowel was noted in the vicinity of the incision. Pinto trocar was placed. The abdomen was insufflated with carbon dioxide to a pressure of 12-15 mmHg. Patient tolerated insufflation well. The laparoscope was then inserted and abdomen inspected. No injuries from initial trocar placement were noted. Additional trochars were then inserted in the following locations 5 mm trocar in the epigastrium and 2 more 5 mm trochars along the right costal margin. The abdomen was inspected gallbladder was found to be tense and inflamed?aspiration needle was used to decompress the gallbladder. The table is placed in reverse Trendelenburg position with the right side up. The adhesions between the gallbladder and omentum were with traction the dome of the gallbladder was grasped with atraumatic grasper passed through the lateral port and retracted over the dome of the liver. Infundibulum was then grasped with atraumatic grasper through the midclavicular port and retracted to the right lower quadrant. Due to dense adhesions and a thick rind unable to safely get to the cystic duct- did use the harmonic to transect the gallbladder wall at the area of the gallbladder neck. There noted to be small black stones which were suctioned along with the bile. Harmonic was used to remove the gallbladder from the liver bed. Erbe was also used for additional hemostasis. 15 [place] round MAXWELL was placed in the right upper quadrant gallbladder fossa exiting through the lateral right trocar site and secured with a 3-0 nylon. Hemostasis was checked and the gallbladder and contained stones were removed using the endoscopic retrieval bag through the umbilical port. The gallbladder is passed off table as specimen. The gallbladder fossa was irrigated with saline and hemostasis obtained. There is no evidence of bleeding from the gallbladder fossa or bile leakage from the remaining neck of the gallbladder. The mucosa was coagulated with Erbe. Secondary trochars removed under direct vision. No bleeding was noted the trocar sites. The laparoscope was withdrawn and umbilical trocar removed. The abdomen was allowed to collapse. The fascia of the 12 mm trocar was closed with a [id number] 0 Vicryl suture. The skin was closed with sutures of 4-0 Monocryl and Steri-Strips. The patient was extubated. The patient tolerated procedure well and was taken to the postanesthesia care unit in stable condition. Surgical Findings: See operative report Complications Complications: No
--- NOTE | 2024-10-23 15:02 | DCINST_ITS ---
Discharge Instructions Diet Discharge Diet: Light diet - advance as tolerated Activity Discharge Activity: May Not Drive (while taking narcotic pain medications.) May shower in (days): 1 Lifting Restrictions: no lifting >20 lbs x 2 wks, no strenuous exercise for 4 wks Dressing / Incision Call your doctor if your incision/area has: Continuous Slow Oozing, Sudden Increased Bleeding, Increased Pain/ Swelling, Increased Redness, Foul Smelling Discharge and Swelling at the incision site Call your doctor if you observe: Fever of 101 or Higher Remove Dressing in: 2 days Cleanse incision/area with: Soap & Water Additional Dressing/Incision Instructions:: Steri-Strips will fall off in 7 to 10 days, if they do not fall off okay to remove after 10 days. Follow Up Care Please Follow Up With: Lary Ivey MD When: Call the office for a follow-up appointment 2 weeks if no drain, follow-up early next week if drain is left in place; after 5 PM and on the weekends call [phone] with any concerns. Test Results: Test results from this visit will be discussed in further detail at your follow- up appointment, if applicable. Discharge Plan Admission Admit Date/Time: 10/23/24 11:56 Attending Provider: Lary Ivey Primary Care Provider: Kenzie Gonzalez Primary Discharge Orders/Prescriptions Prescriptions: New oxycodone 5 mg capsule 5 mg PO Q6H PRN (Reason: pain) 3 Days Qty: 10 0RF Continued omeprazole 40 mg capsule,delayed release(DR/EC) 40 mg PO DAILY Qty: 30 5RF Discontinued oxycodone-acetaminophen 5-325 mg tablet 1 tab PO Q6H PRN (Reason: pain) Referrals / Follow Up: Care PhysicianKenzie Primary [Primary Care Provider] - Disposition Disposition (needs filled in before D/C Order can be placed): Home, Self Care
--- NOTE | 2024-10-23 15:08 | PCM.POST.ANE ---
Anesthesia: Postop Eval I Current Vital Signs Temperature: 98.1 F Pulse Rate: 82 Blood Pressure: 104/63 Respiratory Rate: 20 Pulse Ox: 93 Oxygen Delivery Method: Room Air Assessment Airway patent: Yes Spontaneous unlabored respirations: Yes Mental status: Awake and Calm nausea: No Vomiting: No Anesthesia Complication: No Fluid Hydration Crystalloid volume administer (ml): 1,400 Total IV fluid infused: 1,400 Progress Note Anesthesia document: Postop Eval 1 completed: Yes
[2024-10-23] MEDS: 0.9% Normal Saline (1000mL) 1,000 ML 100 ML IV (16:37)
[2024-10-23] MEDS: Acetaminophen 325 MG Tablet 650 MG PO (18:19)
--- NOTE | 2024-10-23 18:45 | POSTOPAN2_ITS ---
Anesthesia Postop Eval I Sum Postop Eval Completion status Anesthesia document: Postop Eval 1 completed: Yes Anesthesia Postop Eval I Summary Anesthesia Postop Eval I Summary: Anesthesia Postop Eval I: Assessment Summary Airway patent Yes 10/23/24 15:09 ACCOUNT RESOLUTION [email or web address] Spontaneous unlabored Yes 10/23/24 15:09 ACCOUNT RESOLUTION [email or web address] respirations Mental status Awake,Calm 10/23/24 15:09 ACCOUNT RESOLUTION [email or web address] nausea No 10/23/24 15:09 ACCOUNT RESOLUTION [email or web address] Vomiting No 10/23/24 15:09 ACCOUNT RESOLUTION [email or web address] Anesthesia Postop Eval I: Fluid Summary Crystalloid volume administer 1,400 10/23/24 15:09 ACCOUNT RESOLUTION [email or web address] (ml) Colloids volume administered ( ml) Blood Product volume administered (ml) Total IV fluid infused 1,400 10/23/24 15:09 ACCOUNT RESOLUTION [email or web address] Anesthesia Postop Eval I: Summary Notes Anesthesia Complication No 10/23/24 15:09 ACCOUNT RESOLUTION [email or web address] Anesthesia Complication Comment: Post-operative progress note Anesthesia: Postop Eval II Evaluation Mental status: Awake Pain Level: 1 nausea: No Vomiting: No
--- NOTE | 2024-10-23 18:45 | PCM.POSTANE2 ---
Anesthesia Postop Eval I Sum Postop Eval Completion status Anesthesia document: Postop Eval 1 completed: Yes Anesthesia Postop Eval I Summary Anesthesia Postop Eval I Summary: Anesthesia Postop Eval I: Assessment Summary Airway patent Yes 10/23/24 15:09 [email or web address] [email or web address] Spontaneous unlabored Yes 10/23/24 15:09 [email or web address] respirations Mental status Awake,Calm 10/23/24 15:09 [email or web address] nausea No 10/23/24 15:09 [email or web address] Vomiting No 10/23/24 15:09 [email or web address] Anesthesia Postop Eval I: Fluid Summary Crystalloid volume administer 1,400 10/23/24 15:09 FIELD [email or web address] (ml) Colloids volume administered ( ml) Blood Product volume administered (ml) Total IV fluid infused 1,400 10/23/24 15:09 [email or web address] Anesthesia Postop Eval I: Summary Notes Anesthesia Complication No 10/23/24 15:09 [email or web address] Anesthesia Complication Comment: Post-operative progress note Anesthesia: Postop Eval II Evaluation Mental status: Awake Pain Level: 1 nausea: No Vomiting: No
[2024-10-24 00:11] VITALS: BP 98/58; PULSE 60; RESP 16; TEMP 36.6; O2SAT 96
[2024-10-24] MEDS: 0.9% Normal Saline (1000mL) 1,000 ML 100 ML IV (03:04)
[2024-10-24 05:21] VITALS: BP 104/52; PULSE 54; RESP 16; TEMP 36.6; O2SAT 99
[2024-10-24] MEDS: Piperacil/Tazobactam 3.375 GM in 0.9% Normal Saline (50mL MB+) 50 ML IV ×3 (05:24→22:03)
[2024-10-24] MEDS: Acetaminophen 325 MG Tablet 650 MG PO ×2 (05:27→13:47)
[2024-10-24 06:34] LABS: Absolute Neutrophil Count 13.5 X10^3/uL (2.0-7.7); Basophil# 0.01 X10^3/uL; Basophil% 0.1 % (0-1); Hematocrit 36.6 % (40-54); Hemoglobin 12.6 g/dL (13.0-16.5); Lymphocyte % 4.7 % (19-41); Mean Corp Hgb Conc 34.4 g/dL (32-36); Mean Corpuscular Volume 92.9 fL (80-94); Mean Platelet Vol. 11.8 fl (6.2-12.0); Monocyte# 0.41 X10^3/uL; Monocyte% 2.8 % (0-10); NRBC Flagged by Analyzer 0 % (0-5); Neutrophil # 13.54 X10^3/uL (2.7-7.7); Neutrophil % 91.4 % (47-70); Platelet Count 150 K/mm3 (150-450); RBC Distribution Width CV 12.3 % (11.6-14.6); RBC Distribution Width SD 42.3 fl (35.1-43.9); Red Blood Count 3.94 M/mm3 (4.6-6.2); White Blood Count 14.8 K/mm3 (4.4-11.0)
[2024-10-24 07:04] LABS: AST(SGOT) 31 U/L (<=37); Alanine Aminotransfer ALT/SGPT 45 U/L (<=46); Albumin, Serum 3.4 g/dL (3.5-5.0); Alkaline Phosphatase 77 U/L (40-129); Anion Gap 10 (5-15); BUN 12 mg/dL (4-19); BUN/Creat Ratio 11.6 RATIO (10-20); Calcium,Total 8.4 mg/dL (7.6-11.0); Carbon Dioxide 22.5 mmol/L (21.0-32.0); Chloride 107 mmol/L (98-108); Creatinine, Serum 1.03 mg/dL (0.70-1.20); EST Glomerular Filtration Rate 95 (>60); Estimated Creatinine Clearance 93.16 ml/min (50-250); Globulin 2.4 g/dL (2.2-4.2); Glucose 135 mg/dL (70-99); Magnesium 1.9 mg/dL (1.5-2.2); Protein, Total 5.7 g/dL (5.9-8.4); Sodium Level 140 mmol/L (133-145); Total Bilirubin 3.07 mg/dL (0.00-1.30)
--- NOTE | 2024-10-24 07:26 | PCM.PN.SRG ---
Subjective Subjective Patient is comfortable with no complaints Objective Data Objective Data Vital Signs: Vital Signs Temp Pulse Resp BP Pulse Ox O2 Del Method O2 Flow Rate 98 F 54 L 16 104/52 L 99 Room Air 2 10/24/24 05:21 10/24/24 05:21 10/24/24 05:21 10/24/24 05:21 10/24/24 05:21 10/24/24 05:21 10/23/24 16:41 Oxygen Flow Rate (L/min) 2 Oxygen Delivery Method Room Air Weight: 152 lb 5.431 oz Body Mass Index (BMI) 23.1 Intake & Output: Intake and Output for Last 24 Hours 10/22/24 10/23/24 10/24/24 23:59 23:59 23:59 Intake Total 1100 / 1100 3258.25 / 3258.25 1200 / 1200 Output Total 1385 / 1385 30 / 30 Balance 1100 / 1100 1873.25 / 1873.25 1170 / 1170 Lab / Micro Data 10/24/24 06:14 10/24/24 06:14 Labs: Laboratory Results - last 24 hr 10/23/24 05:21: Differential Comment COMMENT 10/24/24 06:14: WBC 14.8 H, RBC 3.94 L, Hgb 12.6 L, Hct 36.6 L, MCV 92.9, MCH 32.0, MCHC 34.4, RDW Std Deviation 42.3, RDW Coeff of Jef 12.3, Plt Count 150, MPV 11.8, Immature Gran % (Auto) 1.000 H, Neut % (Auto) 91.4 H, Lymph % (Auto) 4.7 L, [place] % (Auto) 2.8, Eos % (Auto) 0.0, Baso % (Auto) 0.1, Absolute Neuts (auto) 13.5 H, Absolute Lymphs (auto) 0.70 L, Nucleated RBC % 0, Sodium 140, Potassium 4.0, Chloride 107, Carbon Dioxide 22.5, Anion Gap 10, BUN 12, Creatinine 1.03, Estim Creat Clear Calc 93.16, Est GFR (MDRD) Non-Af 95, BUN/Creatinine Ratio 11.6, Glucose 135 H, Calcium 8.4, Magnesium 1.9, Total Bilirubin 3.07 H, Direct Bilirubin 0.70 H, AST 31, ALT 45, Alkaline Phosphatase 77, Total Protein 5.7 L, Albumin 3.4 L, Globulin 2.4 Micro: Microbiology 10/23/24 Unknown Aspirate - Bile Gram Stain - Final Radiography Diagnostic Testing: Radiology Impression Gallbladder Ultrasound 10/22/24 21:22 IMPRESSION: Acute cholecystitis evidenced by gallstones, trace pericholecystic fluid, thickened gallbladder wall, and positive Penny's sign. Trace ascites. Mild hepatic steatosis. Reading Location: [facility] Physical Exam Const oriented x3 and no apparent distress Resp normal respiratory effort GI soft to palpation and non-tender Assessment & Plan Assessment/Plan (1) S/P laparoscopic cholecystectomy: PLAN: Patient is postoperative day 1 from subtotal cholecystectomy. The drain appears serosanguineous but when I shake it there are bubbles that appear. There may be a bilious component. Continue antibiotics and he is on a full liquid diet. He has yet to tolerate the diet as he did not order food yesterday. I will advance to regular if he tolerates diet. Continue observation of the drain. Cuauhtemoc Dela Cruz MD Pager: [facility] [address] [place] [address], [address] [place] [address] Office:
[2024-10-24 08:41] VITALS: BP 103/58; PULSE 50; RESP 16; TEMP 36.8; O2SAT 98
--- NOTE | 2024-10-24 09:37 | CASEMGMT ---
DOC ALMANZA Assessment Face to Face with patient for initial transition planning/care coordination assessment. DOC ALMANZA introduced self and role at [facility], pt voices understanding. Pt is A&Ox4 and is resting comfortably in bed and is calm. Care providers, pharmacy, and demographics verified. Admitting dx: Acute Cholecystitis LACE Strata: 2 PCP: No PCP. Provider list given at this time Specialists: Denies Preferred Pharmacy: [facility] Insurance: ANTHEM Prescription Benefit: Yes LNOK: Schuyler (Mother), Igor (Father) Living Arrangements: Pt lives with his parents in a three story condo with 3 steps to enter ADLs/IADLs: Independent. 6-Click score is 24. Transportation: Self, mom at dc and denies concerns DME: Denies HHC/SNF: Denies Pt?s goal: Home Plan: Home with pt parents, no additional needs identified at this time. Pt states that he feels safe returning home at the time of DC and denies further concerns at this time. Genesis Zaman RN, CM
[2024-10-24 14:00] VITALS: BP 105/54; PULSE 57; RESP 16; TEMP 36.6; O2SAT 98
[2024-10-24 20:00] VITALS: BP 115/56; PULSE 68; RESP 16; TEMP 36.7; O2SAT 100
[2024-10-24] MEDS: Docusate Sodium 100 MG Capsule PO (20:29)
[2024-10-24] MEDS: Pantoprazole Sodium 40 MG in 0.9% Normal Saline (100mL MB+) 100 ML 330 MG IV (20:31)
[2024-10-25 02:00] VITALS: BP 108/60; PULSE 55; RESP 16; TEMP 36.8; O2SAT 99
[2024-10-25 04:33] LABS: Absolute Lymphocyte Count 1.67 X10^3/uL (0.83-4.51); Absolute Neutrophil Count 9.2 X10^3/uL (2.0-7.7); Basophil# 0.02 X10^3/uL; Basophil% 0.2 % (0-1); Hematocrit 34.8 % (40-54); Lymphocyte # 1.67 X10^3/ul (0.83-4.51); Lymphocyte % 14.8 % (19-41); Mean Corp Hgb Conc 34.5 g/dL (32-36); Mean Corpuscular Hgb 32.2 pg (27.0-32.0); Mean Corpuscular Volume 93.3 fL (80-94); Mean Platelet Vol. 11.6 fl (6.2-12.0); Monocyte# 0.36 X10^3/uL; Monocyte% 3.2 % (0-10); NRBC Flagged by Analyzer 0 % (0-5); Neutrophil # 9.22 X10^3/uL (2.7-7.7); Neutrophil % 81.4 % (47-70); Platelet Count 165 K/mm3 (150-450); RBC Distribution Width CV 12.4 % (11.6-14.6); RBC Distribution Width SD 42.6 fl (35.1-43.9); Red Blood Count 3.73 M/mm3 (4.6-6.2); White Blood Count 11.3 K/mm3 (4.4-11.0)
[2024-10-25] MEDS: Piperacil/Tazobactam 3.375 GM in 0.9% Normal Saline (50mL MB+) 50 ML IV (06:12)
--- NOTE | 2024-10-25 06:53 | PN.SURG_ITS ---
Subjective Subjective Patient is doing well and tolerating full liquids Objective Data Objective Data Vital Signs: Vital Signs Temp Pulse Resp BP Pulse Ox O2 Del Method O2 Flow Rate 98.2 F 55 L 16 108/60 99 Room Air 2 10/25/24 02:00 10/25/24 02:00 10/25/24 02:00 10/25/24 02:00 10/25/24 02:00 10/25/24 02:00 10/23/24 16:41 Oxygen Flow Rate (L/min) 2 Oxygen Delivery Method Room Air Weight: 152 lb 5.431 oz Body Mass Index (BMI) 23.1 Intake & Output: Intake and Output for Last 24 Hours 10/23/24 10/24/24 10/25/24 23:59 23:59 23:59 Intake Total 3258.25 / 3258.25 2113.67 / 2113.67 50 / 50 Output Total 1385 / 1385 140 / 170 90 / 90 Balance 1873.25 / 1873.25 1973.67 / 1943.67 -40 / -40 Lab / Micro Data 10/25/24 04:02 10/24/24 06:14 Labs: Laboratory Results - last 24 hr 10/24/24 06:14: Sodium 140, Potassium 4.0, Chloride 107, Carbon Dioxide 22.5, Anion Gap 10, BUN 12, Creatinine 1.03, Estim Creat Clear Calc 93.16, Est GFR (MDRD) Non-Af 95, BUN/Creatinine Ratio 11.6, Glucose 135 H, Calcium 8.4, Magnesium 1.9, Total Bilirubin 3.07 H, Direct Bilirubin 0.70 H, AST 31, ALT 45, Alkaline Phosphatase 77, Total Protein 5.7 L, Albumin 3.4 L, Globulin 2.4 10/25/24 04:02: WBC 11.3 H, RBC 3.73 L, Hgb 12.0 L, Hct 34.8 L, MCV 93.3, MCH 32.2 H, MCHC 34.5, RDW Std Deviation 42.6, RDW Coeff of Jef 12.4, Plt Count 165, MPV 11.6, Immature Gran % (Auto) 0.400, Neut % (Auto) 81.4 H, Lymph % (Auto) 14.8 L, [place] % (Auto) 3.2, Eos % (Auto) 0.0, Baso % (Auto) 0.2, Absolute Neuts (auto) 9.2 H, Absolute Lymphs (auto) 1.67, Nucleated RBC % 0 Micro: Microbiology 10/23/24 Unknown Aspirate - Bile Gram Stain - Final 10/23/24 Unknown Aspirate - Bile Wound Culture - Preliminary No growth-Final to follow Physical Exam Const oriented x3 and no apparent distress Resp clear to auscultation bilaterally GI soft to palpation Palpation: tender Assessment & Plan Assessment/Plan (1) S/P laparoscopic cholecystectomy: PLAN: Patient is doing well and tolerating full liquid diet. I will discharge him home with [facility] drain in place today. Follow-up with [facility] on Saturday for drain removal as long as it stays nonbilious
--- NOTE | 2024-10-25 06:54 | PCM.DC.SUM ---
Providers Date of Admission: 10/23/24 Primary Care Physician: No Primary Care Phys Reason For Visit: ACUTE CHOLECYSTITIS Diagnosis Discharge Diagnosis (1) S/P laparoscopic cholecystectomy: Status: Acute Code(s): Z90.49 - Acquired absence of other specified parts of digestive tract Plan: Patient is doing well and tolerating full liquid diet. I will discharge him home with MAXWELL drain in place today. Follow-up with [facility] on Saturday for drain removal as long as it stays nonbilious Medications at Discharge Home Medications omeprazole 40 mg capsule,delayed release 40 mg PO DAILY #30 caps 07/29/24 oxycodone 5 mg tablet 5 - 10 mg (1 - 2 x 5 mg) PO Q4H PRN PRN Pain Score 1-10 5 days #14 tabs 10/25/24 Hospital Course Operations cholecystecomy Procedures None Summary of Care Provided Hospital Course: The patient had laparoscopic partial cholecystectomy for a very severely inflamed gallbladder. Drain was left in place. Following surgery he was slowly advance diet and discharged home with drain in place. Weight / BMI Weight Weight: 152 lb 5.431 oz Body Mass Index (BMI) 23.1 ABG / Lab / Microbiology Data 10/25/24 04:02 10/24/24 06:14 Laboratory: Laboratory Results - last 24 hr 10/24/24 06:14: Sodium 140, Potassium 4.0, Chloride 107, Carbon Dioxide 22.5, Anion Gap 10, BUN 12, Creatinine 1.03, Estim Creat Clear Calc 93.16, Est GFR (MDRD) Non-Af 95, BUN/Creatinine Ratio 11.6, Glucose 135 H, Calcium 8.4, Magnesium 1.9, Total Bilirubin 3.07 H, Direct Bilirubin 0.70 H, AST 31, ALT 45, Alkaline Phosphatase 77, Total Protein 5.7 L, Albumin 3.4 L, Globulin 2.4 10/25/24 04:02: WBC 11.3 H, RBC 3.73 L, Hgb 12.0 L, Hct 34.8 L, MCV 93.3, MCH 32.2 H, MCHC 34.5, RDW Std Deviation 42.6, RDW Coeff of Jef 12.4, Plt Count 165, MPV 11.6, Immature Gran % (Auto) 0.400, Neut % (Auto) 81.4 H, Lymph % (Auto) 14.8 L, [place] % (Auto) 3.2, Eos % (Auto) 0.0, Baso % (Auto) 0.2, Absolute Neuts (auto) 9.2 H, Absolute Lymphs (auto) 1.67, Nucleated RBC % 0 Microbiology: Microbiology 10/23/24 Unknown Aspirate - Bile Gram Stain - Final 10/23/24 Unknown Aspirate - Bile Wound Culture - Preliminary No growth-Final to follow D/C Instructions Discharge Diet: Light diet - advance as tolerated May shower in (days): 1 Lifting Restrictions: 15 pounds for 2 weeks Call your doctor if your incision/area has: Continuous Slow Oozing, Sudden Increased Bleeding, Increased Pain/ Swelling, Increased Redness, Foul Smelling Discharge and Swelling at the incision site Call your doctor if you observe: Fever of 101 or Higher Cleanse incision/area with: Soap & Water Drain: Suction Additional Dressing/Incision Instructions: Steri-Strips will fall off in 7 to 10 days, if they do not fall off okay to remove after 10 days. DC O2, CPAP, BIPAP Needs Home O2 Discharge instructions: No Please Follow Up With: Lary Ivey MD When: Call the office for a follow-up appointment on Saturday, , inform front desk auxiliary that you need an appointment JAQUELIN for drain removal Meaningful Use Info Meaningful Use Meaningful Use Diagnoses (Choose all that apply): None applicable Ischemic Stroke Statin Dosing Therapy Reference: STATIN DOSE THERAPY REFERENCE: * Patients > 75 years receive moderate or high dose statin therapy. * Patients 75 years or YOUNGER should receive HIGH intensity statin dose unless contraindicated. You will be required to document reason for non-treatment if statin daily dose does not meet guidelines. HIGH DOSE STATIN THERAPY DAILY Atorvastatin > than or = to 40 mg Rosuvastatin > than or = to 20 mg Amlodipine + Atorvastatin > than or = to 2.5/40 mg Ezetimibe + Simvastatin 10/80 mg Simvastatin 80mg Discharge Plan Admission Admit Date/Time: 10/23/24 11:56 Attending Provider: Lary Ivey Primary Care Provider: Care Physician,No Primary Discharge Orders/Prescriptions Prescriptions: New oxycodone 5 mg Tablet 5 - 10 mg PO Q4H PRN PRN (Reason: Pain Score 1-10) 5 Days Qty: 14 0RF Continued omeprazole 40 mg capsule,delayed release(DR/EC) 40 mg PO DAILY Qty: 30 5RF Discontinued oxycodone-acetaminophen 5-325 mg tablet 1 tab PO Q6H PRN (Reason: pain) Referrals / Follow Up: Care Physician,No Primary [Primary Care Provider] - Disposition Disposition (needs filled in before D/C Order can be placed): Home, Self Care
[2024-10-25 08:00] VITALS: BP 102/64; PULSE 60; RESP 18; TEMP 36.4; O2SAT 99
[2024-10-25] MEDS: Acetaminophen 325 MG Tablet 650 MG PO (13:39)
== END 2024-10-25 14:17 | disposition home or self-care (01) | DRG 419 ==
LOC: ED 22:44 → MS3 10-23 00:30
PROVIDERS: Emergency Medicine; Admitting Provider Surgery; Emergency Provider Emergency Medicine; Referring Provider Emergency Medicine; Visit Provider Surgery
PROC: 0FB44ZZ Excision of Gallbladder, Percutaneous Endoscopic Approach (ICD-10-PCS; CPT 47610; principal; 2024-10-23 13:10)
DX: K80.00 Calculus of gallbladder with acute cholecystitis without obstruction (principal); K21.9 Gastro-esophageal reflux disease without esophagitis; K82.8 Other specified diseases of gallbladder; K66.0 Peritoneal adhesions (postprocedural) (postinfection)
CPT/HCPCS: 36415; 76705; 80048; 80076; 83690; 83735; 85025; 87070; 87075; 87205; 88304; 93005; 94668; 99284; A4216; J2405